=== PATIENT | male | born 1945 | race Two or more races ===

== ENCOUNTER 2016-07-30 14:01 | Outpatient (RCR) | payer MEDICARE, MEDICAID ==
[~2016-07-30] VITALS: Ht 30.5 cm; Wt 0.5 kg
[2016-08-08] MEDS ORDERED: Lidocaine 4% Top Soln 50ml TOPIC ONE (14:30)
[2016-08-08] MEDS ORDERED: Lidocaine/Epinephrine 2% 20 ML VIAL IV ONE (14:30)
== END 2016-08-12 | disposition home or self-care (01) ==
LOC: WCC 14:01
DX: L89.154 Pressure ulcer of sacral region, stage 4 (principal); L89.620 Pressure ulcer of left heel, unstageable; L89.513 Pressure ulcer of right ankle, stage 3; Z86.73 Personal history of transient ischemic attack (TIA), and cerebral infarction without residual deficits; I10 Essential (primary) hypertension; E11.9 Type 2 diabetes mellitus without complications
CPT/HCPCS: 11044; 11047; 20240; 87070; 87181; 87205; G0463

== ENCOUNTER → 2016-07-30 | Outpatient (CLI) | payer MEDICARE, MEDICAID ==
[2016-07-30 16:32] LABS: MEAN CORPUSCULAR HEMOGLOBIN 31.3 PG (27.0-31.0); MEAN CORPUSCULAR HGB CONC 33.3 G/DL (32.0-36.0); MEAN CORPUSCULAR VOLUME 94 FL (80-99); MEAN PLATELET VOLUME 5.2 FL (6.5-10.1); PLATELET COUNT 490 K/UL (150-450); RED BLOOD COUNT 4.17 M/UL (4.70-6.10); RED CELL DISTRIBUTION WIDTH 12.3 % (11.6-14.8); WHITE BLOOD COUNT 19.2 K/UL (4.8-10.8)
[2016-07-30 16:42] LABS: BASOPHILS % (AUTO) 0.8 % (0.0-2.0); EOSINOPHILS % (AUTO) 2.4 % (0.0-3.0); LYMPHOCYTES % (AUTO) 17.7 % (20.0-45.0); MONOCYTES % (AUTO) 5.7 % (1.0-10.0); NEUTROPHILS % (AUTO) 73.4 % (45.0-75.0)
[2016-07-30 17:03] LABS: ALBUMIN/GLOBULIN RATIO 0.6 (1.0-2.7); CALCIUM 9.3 mg/dL (8.6-10.2); CREATININE 1.3 mg/dL (0.7-1.2); GLOMERULAR FILTRATION RATE 54.6 mL/min (>60); POTASSIUM 4.5 mEQ/L (3.4-4.9); TOTAL PROTEIN 8.1 g/dL (6.6-8.7)
== END | disposition home or self-care (01) ==
LOC: LAB 15:57
DX: B99.9 Unspecified infectious disease (principal)
CPT/HCPCS: 36415; 80053; 84134; 85025

== ENCOUNTER → 2016-08-04 | Outpatient (CLI) | payer MEDICARE, MEDICAID ==
[~2016-08-04] VITALS: Ht 172.7 cm; Wt 86.2 kg
[~2016-08-04] MED LIST: Lidocaine 4% Top Soln 50ml TOPIC ONE; Lidocaine/Epinephrine 2% 20 ML VIAL IV ONE
[2016-08-04 15:38] LABS: MEAN CORPUSCULAR HGB CONC 31.8 G/DL (32.0-36.0); MEAN CORPUSCULAR VOLUME 94 FL (80-99); MEAN PLATELET VOLUME 4.8 FL (6.5-10.1); PLATELET COUNT 445 K/UL (150-450); RED BLOOD COUNT 4.28 M/UL (4.70-6.10); RED CELL DISTRIBUTION WIDTH 12.2 % (11.6-14.8); WHITE BLOOD COUNT 20.4 K/UL (4.8-10.8)
[2016-08-04 16:29] LABS: EOSINOPHILS % (MANUAL) 3 % (0-3); LYMPHOCYTES % (MANUAL) 18 % (20-45); NEUTROPHILS % (MANUAL) 72 % (45-75); TOTAL CELLS COUNTED 100
[2016-08-04 16:30] LABS: ANISOCYTOSIS 1+; BAND NEUTROPHILS % (MANUAL) 0 % (0-8); BASOPHILS % (MANUAL) 0 % (0-2); PLATELET ESTIMATE ADEQUATE; PLATELET MORPHOLOGY NORMAL
== END | disposition home or self-care (01) ==
LOC: LAB 15:10
DX: B99.9 Unspecified infectious disease (principal)
CPT/HCPCS: 36415; 85007; 85025

== ENCOUNTER 2016-09-08 13:00 | Outpatient (RCR) | payer MEDICARE, MEDICAID ==
[~2016-09-08] VITALS: Ht 172.7 cm; Wt 86.2 kg
[2016-09-11] MEDS ORDERED: Lidocaine 4% Top Soln 50ml TOPIC ONE (10:45)
== END 2016-09-09 | disposition home or self-care (01) ==
LOC: WCC 13:00
DX: L89.154 Pressure ulcer of sacral region, stage 4 (principal); E11.9 Type 2 diabetes mellitus without complications; L89.612 Pressure ulcer of right heel, stage 2; I10 Essential (primary) hypertension; Z86.73 Personal history of transient ischemic attack (TIA), and cerebral infarction without residual deficits
CPT/HCPCS: 11044; 11047; 97605

== ENCOUNTER 2016-09-15 12:30 | Outpatient (RCR) | payer MEDICARE, MEDICAID | END 2016-10-10 | disposition home or self-care (01) | LOC: WCC 12:30 | DX: L89.154 Pressure ulcer of sacral region, stage 4 (principal); L89.620 Pressure ulcer of left heel, unstageable; L89.513 Pressure ulcer of right ankle, stage 3; R21 Rash and other nonspecific skin eruption; E11.9 Type 2 diabetes mellitus without complications; I10 Essential (primary) hypertension; Z86.73 Personal history of transient ischemic attack (TIA), and cerebral infarction without residual deficits | CPT/HCPCS: 11044; 11047; 97605 ==

== ENCOUNTER 2016-10-15 13:30 | Outpatient (RCR) | payer MEDICARE, MEDICAID ==
[~2016-10-15] VITALS: Ht 172.7 cm; Wt 86.2 kg
[2016-10-17] MEDS ORDERED: Lidocaine HCl 2% Jelly 5ml Tube TOPIC ONE (12:45)
[2016-11-06] MEDS ORDERED: Hydrocortisone 1% Cr 15gm TOPIC ONE (15:30)
== END 2016-11-09 | disposition home or self-care (01) ==
LOC: WCC 13:30
DX: L89.154 Pressure ulcer of sacral region, stage 4 (principal); L89.620 Pressure ulcer of left heel, unstageable; L89.513 Pressure ulcer of right ankle, stage 3; R21 Rash and other nonspecific skin eruption; M86.38 Chronic multifocal osteomyelitis, other site; Z86.73 Personal history of transient ischemic attack (TIA), and cerebral infarction without residual deficits; I10 Essential (primary) hypertension; E11.9 Type 2 diabetes mellitus without complications
CPT/HCPCS: 11043; 11044; 11046; 11047; 20245; 87070; 87181; 87205; 97605

== ENCOUNTER → 2016-10-27 | Outpatient (CLI) | payer MEDICARE, MEDICAID ==
[2016-10-27 14:41] LABS: BASOPHILS % (AUTO) 0.8 % (0.0-2.0); EOSINOPHILS % (AUTO) 2.8 % (0.0-3.0); LYMPHOCYTES % (AUTO) 24.7 % (20.0-45.0); MEAN CORPUSCULAR HEMOGLOBIN 30.4 PG (27.0-31.0); MEAN CORPUSCULAR HGB CONC 32.3 G/DL (32.0-36.0); MEAN CORPUSCULAR VOLUME 94 FL (80-99); MEAN PLATELET VOLUME 5.4 FL (6.5-10.1); MONOCYTES % (AUTO) 4.7 % (1.0-10.0); PLATELET COUNT 383 K/UL (150-450); RED BLOOD COUNT 3.93 M/UL (4.70-6.10); RED CELL DISTRIBUTION WIDTH 13.1 % (11.6-14.8)
[2016-10-27 14:54] LABS: HEMOGLOBIN A1C 6.1 % (< 6.0)
[2016-10-27 15:14] LABS: ANION GAP 16 (5-15); CALCIUM 9.3 mg/dL (8.6-10.2); CARBON DIOXIDE 23 mEQ/L (20-30); CHLORIDE 98 mEQ/L (98-107); CREATININE 0.8 mg/dL (0.7-1.2); GLOMERULAR FILTRATION RATE > 60 mL/min (>60); HEMOLYSIS 1; POTASSIUM 4.6 mEQ/L (3.4-4.9); SODIUM 137 mEQ/L (135-145)
== END | disposition home or self-care (01) ==
LOC: LAB 14:02
DX: E46 Unspecified protein-calorie malnutrition (principal); E11.9 Type 2 diabetes mellitus without complications; B99.9 Unspecified infectious disease
CPT/HCPCS: 36415; 80048; 83036; 84134; 85025; 87070; 87181; 87205

== ENCOUNTER 2016-11-10 12:16 | Outpatient (RCR) | payer MEDICAID, MEDICARE ==
[~2016-11-10] VITALS: Ht 172.7 cm; Wt 86.2 kg
--- NOTE | 2016-11-10 22:18 | Consultation ---
DATE OF CONSULTATION: 11/10/2016 INFECTIOUS DISEASE CONSULTATION REQUESTING PHYSICIAN: Sergio Antoine M.D. 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 coli, Enterococcus faecalis and Staph aureus. Recommendation for antibiotics therapy. HISTORY OF PRESENT ILLNESS: The patient is a 71-year-old male with a past medical history of sacral wound stage IV, left heel pressure ulcer unstageable and right ankle stage III wound, who has had osteomyelitis and was recently admitted to an outside hospital. He had surgical debridement of his sacral wound and he had a culture, which grew E. coli and Enterococcus faecalis. At that time, the patient was treated with Zosyn IV in August for 6 weeks and he was referred to [facility] for further care and management. The patient continued to have an open large sacral decubitus wound with undermining and tunneling. There was no significant improvement in the progress of the sacral wound so he underwent another sacral bone biopsy, which was concern for osteomyelitis. He also had culture from the bone of the sacrum grew E. coli, Staph aureus and Enterococcus faecalis. So, I was consulted by the plastic surgeon for antibiotics treatment for his recurrent osteomyelitis and poor wound healing process. As of note, the patient is a poor historian, cannot provide any history. History was mainly obtained from the caregiver and the medical record. PAST MEDICAL HISTORY: Significant for chronic sacral wound with osteomyelitis, left heel wound and ulcer of the right ankle, skin eruption with rash and chronic osteomyelitis. PAST SURGICAL HISTORY: He had surgical debridement of his sacral wound recently in August. ALLERGIES: He has no known drug allergy. MEDICATIONS: Please refer to the MAR for further details. He was currently on ciprofloxacin for 10 days, which he will finish today. FAMILY HISTORY: Noncontributory. SOCIAL HISTORY: He lives at home with his daughter, who take care of him. No recent drugs, tobacco, or alcohol. PHYSICAL EXAMINATION: GENERAL: The patient is an elderly male, laying on his left side in bed with large sacral wound, seems to be quiet, pleasant, not in acute distress. HEENT: Normocephalic and atraumatic. Pupils are reactive to lights. Pale sclerae. Dry oral mucosa. NECK: Supple. No lymphadenopathy. CARDIOVASCULAR: Regular rate and rhythm. No murmur or gallop. LUNGS: Clear bilaterally. No wheezing or rhonchi. ABDOMEN: Soft, nontender, and nondistended. Positive bowel sounds. No hepatosplenomegaly. EXTREMITIES: No edema or cyanosis. SKIN: He had a sacral pressure wound stage IV measured about 6.3 x 4 cm x 1.7 depth with exposed muscle and bones with undermining mainly at 12 o'clock with bright red granulation at the base of the wound. LABORATORY DATA: Showed BUN of 28 and creatinine of 0.5. Images were none done recently. ASSESSMENT AND RECOMMENDATION: 1. Sacral osteomyelitis due to Escherichia coli, Staphylococcus aureus, and Enterococcus faecalis. We will treat the patient with vancomycin, ceftriaxone and Flagyl for 6 weeks again for his recurrent osteomyelitis. Recommend wound VAC to be placed during this visit to prevent further contamination of the wound with his fecal temo, which causing his recurrent wound infection. I recommend improving his nutritional support and offloading all the time. Plan of care was discussed with the daughter who agreed to proceed. All risks and side effects of antibiotics were explained to the daughter in detail and they agreed to proceed with this plan. We will monitor his laboratories weekly and obtain vancomycin trough at least twice a week to keep therapeutic between 15 to 20. 2. Sacral pressure wound. Continue local wound care as per wound care team. Recommend offloading and wound VAC as needed. Morenita Peña M.D. DR: CARLITA JOB#: [id number] CC:
[2016-11-27] MEDS ORDERED: Lidocaine HCl 2% Jelly 5ml Tube TOPIC ONE (17:00)
[2016-12-10] MEDS ORDERED: Lidocaine HCl 2% Jelly 5ml Tube TOPIC ONE (16:45)
== END 2016-12-10 | disposition home or self-care (01) ==
LOC: WCC 12:16
DX: L89.154 Pressure ulcer of sacral region, stage 4 (principal); L89.620 Pressure ulcer of left heel, unstageable; L89.513 Pressure ulcer of right ankle, stage 3; R21 Rash and other nonspecific skin eruption; M86.38 Chronic multifocal osteomyelitis, other site; Z86.73 Personal history of transient ischemic attack (TIA), and cerebral infarction without residual deficits; E11.9 Type 2 diabetes mellitus without complications; I10 Essential (primary) hypertension
CPT/HCPCS: 11043; 11044; 11046; 11047; 97605; G0463

== ENCOUNTER → 2016-11-10 | Outpatient (CLI) | payer MEDICAID, MEDICARE ==
[~2016-11-10] VITALS: Ht 33 cm; Wt 0.5 kg
[~2016-11-10] MED LIST changes: +Heparin 2000 units/Ns 1000ml INJ ONE; +Lidocaine 1% Plain 30 ml INJ ONE; -Lidocaine 4% Top Soln 50ml TOPIC ONE; -Lidocaine/Epinephrine 2% 20 ML VIAL IV ONE; +Sodium Bicarbonate 8.4% 50ml Inj IV ONE
--- NOTE | 2016-11-10 16:35 | Diagnostic Imaging Report ---
Indications: Needs long-term IV access Technique: Ultrasound confirms patent compressible right basilic vein. Total sterile technique, including sterile probe cover and sterile gel, hat, mask,, sterile gown, large sterile drape, and preparation with 2% chlorhexidine utilized. Local anesthesia with 1% lidocaine. Under real-time ultrasound guidance, puncture basilic vein using 21-gauge needle, documented and archived, passage 0.018 guidewire under direct fluoroscopy, which was used to determine appropriate catheter length, exchange for 5 [place]i peel-away sheath. 5 [place] Bard dual-lumen power PICC cut to 36 cm. It was inserted through the peel-away sheath. Peel-away sheath and guidewire removed. Catheter fixed to the skin. Both catheter ports aspirated and flushed. Patient tolerated procedure well, without immediate complication. Digital radiograph documents satisfactory catheter tip position, at the cavoatrial junction. Total fluoroscopy time 0.3 minutes. Total dose area product 4.9 dGycm2 Impression: Successful placement of right arm PICC under sonographic and fluoroscopic guidance, as described above.
== END | disposition home or self-care (01) ==
LOC: RAD 14:16
DX: M86.9 Osteomyelitis, unspecified (principal); Z79.899 Other long term (current) drug therapy
CPT/HCPCS: 36569; 76937; J1644; J2001; J3490

== ENCOUNTER 2016-11-24 12:02 | Outpatient (CLI) | payer MEDICARE ==
[2016-11-24 12:32] LABS: BASOPHILS % (AUTO) 0.7 % (0.0-2.0); EOSINOPHILS % (AUTO) 4.6 % (0.0-3.0); LYMPHOCYTES % (AUTO) 29.5 % (20.0-45.0); MEAN CORPUSCULAR HGB CONC 33.5 G/DL (32.0-36.0); MEAN CORPUSCULAR VOLUME 92 FL (80-99); MEAN PLATELET VOLUME 6.3 FL (6.5-10.1); MONOCYTES % (AUTO) 5.3 % (1.0-10.0); NEUTROPHILS % (AUTO) 59.9 % (45.0-75.0); PLATELET COUNT 298 K/UL (150-450); RED BLOOD COUNT 4.07 M/UL (4.70-6.10); RED CELL DISTRIBUTION WIDTH 14.9 % (11.6-14.8); WHITE BLOOD COUNT 13.3 K/UL (4.8-10.8)
[2016-11-24 12:48] LABS: ANION GAP 14 (5-15); CALCIUM 8.8 mg/dL (8.6-10.2); CARBON DIOXIDE 25 mEQ/L (20-30); CHLORIDE 97 mEQ/L (98-107); CREATININE 0.6 mg/dL (0.7-1.2); GLOMERULAR FILTRATION RATE > 60 mL/min (>60); HEMOLYSIS 22; POTASSIUM 4.5 mEQ/L (3.4-4.9); SODIUM 136 mEQ/L (135-145)
== END 2016-11-25 13:32 | disposition home or self-care (01) ==
LOC: LAB 12:02
DX: E46 Unspecified protein-calorie malnutrition (principal); B99.9 Unspecified infectious disease
CPT/HCPCS: 36415; 80048; 80202; 84134; 85025

== ENCOUNTER 2016-12-03 12:12 | Outpatient (CLI) | payer MEDICARE | END 2016-12-03 14:12 | disposition home or self-care (01) | LOC: RAD 12:12 | DX: B99.9 Unspecified infectious disease (principal) ==

== ENCOUNTER 2016-12-15 11:00 | Outpatient (RCR) | payer MEDICARE ==
[~2016-12-15] VITALS: Ht 172.7 cm; Wt 86.2 kg
[2016-12-19] MEDS ORDERED: Lidocaine HCl 2% Jelly 5ml Tube TOPIC ONE (14:30)
--- NOTE | 2016-12-22 19:03 | Infectious Diseases Prog Note ---
Assessment/Plan Problems: (1) Sacral osteomyelitis Assessment & Plan: due to staph aureus, enterobacter fecalis and E coli, improving on vancomycin and ceftriaxon , will extend his antibiotics course two more weeks since he has interruption in his antibiotics due to lack of labs , since his PICC line was not withdrawing blood (2) Wound of sacral region Assessment & Plan: with underlying osteomyelitis , continue antibiotics therapy and local wound care as per wound care team, continue off loading Subjective Constitutional: Reports: no symptoms HEENT: Reports: no symptoms Respiratory: Reports: no symptoms Breasts: Reports: no symptoms Cardiovascular: Reports: no symptoms Gastrointestinal/Abdominal: Reports: no symptoms Genitourinary: Reports: no symptoms Neurologic: Reports: no symptoms Psychiatric: Reports: no symptoms Skin: Reports: ulcer - in the sacral area with good granulation tissue Allergies: Coded Allergies: NO KNOWN DRUG ALLERGIES (Verified Allergy, Unknown, 08/08/16) Objective General Appearance: WD/WN, no acute distress HEENT: normocephalic, atraumatic, anicteric, mucous membranes moist Respiratory/Chest: chest wall non-tender, lungs clear, normal breath sounds, no respiratory distress, no accessory muscle use Cardiovascular: normal peripheral pulses, normal rate, regular rhythm, no gallop/murmur, no JVD Abdomen: normal bowel sounds, soft, non tender, no organomegaly, non distended , no mass, no scars Extremities: no cyanosis, no clubbing Skin: no rash, no lesions, ulcers - sacral wound with good granulation tissue and undermining Morenita Peña M.D. Dec 22, 2016 19:03
== END 2017-01-09 | disposition home or self-care (01) ==
LOC: WCC 11:00
DX: L89.154 Pressure ulcer of sacral region, stage 4 (principal); M86.38 Chronic multifocal osteomyelitis, other site; Z86.73 Personal history of transient ischemic attack (TIA), and cerebral infarction without residual deficits; E11.9 Type 2 diabetes mellitus without complications; I10 Essential (primary) hypertension
CPT/HCPCS: 11043; 11046; 97605

== ENCOUNTER 2016-12-29 11:51 | Outpatient (CLI) | payer MEDICARE ==
[2016-12-29 12:24] LABS: BASOPHILS % (AUTO) 1.1 % (0.0-2.0); EOSINOPHILS % (AUTO) 3.5 % (0.0-3.0); MEAN CORPUSCULAR HEMOGLOBIN 31.7 PG (27.0-31.0); MEAN CORPUSCULAR HGB CONC 32.8 G/DL (32.0-36.0); MEAN CORPUSCULAR VOLUME 97 FL (80-99); MEAN PLATELET VOLUME 5.2 FL (6.5-10.1); NEUTROPHILS % (AUTO) 62.5 % (45.0-75.0); PLATELET COUNT 318 K/UL (150-450); RED BLOOD COUNT 3.86 M/UL (4.70-6.10); RED CELL DISTRIBUTION WIDTH 14.5 % (11.6-14.8); WHITE BLOOD COUNT 15.7 K/UL (4.8-10.8)
[2016-12-29 12:48] LABS: ALANINE AMINOTRANSFERASE 131 U/L (3-41); ALBUMIN/GLOBULIN RATIO 0.7 (1.0-2.7); ANION GAP 20 (5-15); ASPARTATE AMINO TRANSFERASE 81 U/L (5-40); CALCIUM 9.2 mg/dL (8.6-10.2); CARBON DIOXIDE 20 mEQ/L (20-30); CHLORIDE 114 mEQ/L (98-107); CREATININE 1.1 mg/dL (0.7-1.2); GLOMERULAR FILTRATION RATE > 60 mL/min (>60); HEMOLYSIS 0; POTASSIUM 4.3 mEQ/L (3.4-4.9); SODIUM 154 mEQ/L (135-145); TOTAL PROTEIN 7.9 g/dL (6.6-8.7)
== END 2016-12-29 13:51 | disposition home or self-care (01) ==
LOC: LAB 11:51
DX: R50.9 Fever, unspecified (principal)
CPT/HCPCS: 36415; 80053; 85025

== ENCOUNTER 2017-01-19 11:00 | Outpatient (RCR) | payer MEDICARE ==
[~2017-01-19] VITALS: Ht 172.7 cm; Wt 86.2 kg
[2017-01-21] MEDS ORDERED: Lidocaine HCl 2% Jelly 5ml Tube TOPIC ONE (11:00)
== END 2017-02-09 | disposition home or self-care (01) ==
LOC: WCC 11:00
DX: L89.154 Pressure ulcer of sacral region, stage 4 (principal); L89.620 Pressure ulcer of left heel, unstageable; M86.38 Chronic multifocal osteomyelitis, other site; Z86.73 Personal history of transient ischemic attack (TIA), and cerebral infarction without residual deficits; I10 Essential (primary) hypertension; E11.9 Type 2 diabetes mellitus without complications
CPT/HCPCS: 11043; 11046; 97605; G0463

== ENCOUNTER 2017-02-23 11:08 | Outpatient (RCR) | payer MEDICARE ==
[~2017-02-23] VITALS: Ht 172.7 cm; Wt 86.2 kg
== END 2017-03-12 | disposition home or self-care (01) ==
LOC: WCC 11:08
DX: L89.154 Pressure ulcer of sacral region, stage 4 (principal); L89.620 Pressure ulcer of left heel, unstageable; M86.38 Chronic multifocal osteomyelitis, other site; E11.9 Type 2 diabetes mellitus without complications; I10 Essential (primary) hypertension; Z86.73 Personal history of transient ischemic attack (TIA), and cerebral infarction without residual deficits
CPT/HCPCS: 11043; 11046; 97605

== ENCOUNTER 2017-03-23 11:00 | Outpatient (RCR) | payer MEDICARE | END 2017-04-11 | disposition home or self-care (01) | LOC: WCC 11:00 | DX: L89.154 Pressure ulcer of sacral region, stage 4 (principal); L89.620 Pressure ulcer of left heel, unstageable; M86.38 Chronic multifocal osteomyelitis, other site; L89.212 Pressure ulcer of right hip, stage 2; I10 Essential (primary) hypertension; E11.9 Type 2 diabetes mellitus without complications; Z86.73 Personal history of transient ischemic attack (TIA), and cerebral infarction without residual deficits | CPT/HCPCS: 11043; 11046; 97605 ==

== ENCOUNTER 2017-03-23 11:56 | Outpatient (CLI) | payer MEDICARE | END 2017-03-23 13:56 | disposition home or self-care (01) | LOC: LAB 11:56 | DX: E46 Unspecified protein-calorie malnutrition (principal) | CPT/HCPCS: 84134 ==

== ENCOUNTER 2017-04-13 11:00 | Outpatient (RCR) | payer MEDICARE ==
[~2017-04-13] VITALS: Ht 172.7 cm; Wt 86.2 kg
== END 2017-05-12 | disposition home or self-care (01) ==
LOC: WCC 11:00
DX: L89.154 Pressure ulcer of sacral region, stage 4 (principal); L89.620 Pressure ulcer of left heel, unstageable; M86.38 Chronic multifocal osteomyelitis, other site; L89.212 Pressure ulcer of right hip, stage 2; I10 Essential (primary) hypertension; E11.9 Type 2 diabetes mellitus without complications; Z86.73 Personal history of transient ischemic attack (TIA), and cerebral infarction without residual deficits
CPT/HCPCS: 11043; 11046; 97605

== ENCOUNTER 2017-05-18 11:00 | Outpatient (RCR) | payer MEDICARE | END 2017-06-11 | disposition home or self-care (01) | LOC: WCC 11:00 | DX: L89.154 Pressure ulcer of sacral region, stage 4 (principal); L89.620 Pressure ulcer of left heel, unstageable; M86.38 Chronic multifocal osteomyelitis, other site; L89.212 Pressure ulcer of right hip, stage 2; Z86.73 Personal history of transient ischemic attack (TIA), and cerebral infarction without residual deficits; E11.9 Type 2 diabetes mellitus without complications; I10 Essential (primary) hypertension | CPT/HCPCS: 11043; 11046; 97605 ==

== ENCOUNTER 2017-06-15 10:30 | Outpatient (RCR) | payer MEDICARE | END 2017-07-12 | disposition home or self-care (01) | LOC: WCC 10:30 | DX: L89.154 Pressure ulcer of sacral region, stage 4 (principal); L89.323 Pressure ulcer of left buttock, stage 3; L89.620 Pressure ulcer of left heel, unstageable; M86.38 Chronic multifocal osteomyelitis, other site; L89.212 Pressure ulcer of right hip, stage 2; E11.9 Type 2 diabetes mellitus without complications; I10 Essential (primary) hypertension; Z86.73 Personal history of transient ischemic attack (TIA), and cerebral infarction without residual deficits | CPT/HCPCS: 11043; 11046 ==

== ENCOUNTER 2017-07-20 10:30 | Outpatient (RCR) | payer MEDICARE, MEDICAID ==
[~2017-07-20] VITALS: Ht 172.7 cm; Wt 86.2 kg
== END 2017-08-12 | disposition home or self-care (01) ==
LOC: WCC 10:30
DX: L89.154 Pressure ulcer of sacral region, stage 4 (principal); L89.620 Pressure ulcer of left heel, unstageable; M86.38 Chronic multifocal osteomyelitis, other site; L89.212 Pressure ulcer of right hip, stage 2; L89.323 Pressure ulcer of left buttock, stage 3; I10 Essential (primary) hypertension; E11.9 Type 2 diabetes mellitus without complications; Z86.73 Personal history of transient ischemic attack (TIA), and cerebral infarction without residual deficits
CPT/HCPCS: 11042; 11043; C5271; Q4124

== ENCOUNTER 2017-08-17 10:43 | Outpatient (RCR) | payer MEDICARE, OTHER | END 2017-09-09 | disposition home or self-care (01) | LOC: WCC 10:43 | DX: L89.154 Pressure ulcer of sacral region, stage 4 (principal); M86.38 Chronic multifocal osteomyelitis, other site; L89.322 Pressure ulcer of left buttock, stage 2; I10 Essential (primary) hypertension; E11.9 Type 2 diabetes mellitus without complications; Z86.73 Personal history of transient ischemic attack (TIA), and cerebral infarction without residual deficits | CPT/HCPCS: 11043; C5271; Q4124 ==

== ENCOUNTER 2017-09-14 10:42 | Outpatient (RCR) | payer MEDICARE, OTHER ==
[~2017-09-14] VITALS: Ht 172.7 cm; Wt 86.2 kg
== END 2017-10-10 | disposition home or self-care (01) ==
LOC: WCC 10:42
DX: L89.154 Pressure ulcer of sacral region, stage 4 (principal); L89.320 Pressure ulcer of left buttock, unstageable; M86.38 Chronic multifocal osteomyelitis, other site; Z86.73 Personal history of transient ischemic attack (TIA), and cerebral infarction without residual deficits; I10 Essential (primary) hypertension
CPT/HCPCS: 11042; 15271; Q4133

== ENCOUNTER 2017-10-12 08:41 | Outpatient (RCR) | payer MEDICARE, OTHER ==
[2017-11-02] MEDS ORDERED: NORMODYNE100 MG ORAL (13:04)
[2017-11-02] MEDS ORDERED: DILANTIN100 MG ORAL (13:04)
[2017-11-02] MEDS ORDERED: NORVASC5 MG ORAL (13:04)
[2017-11-02] MEDS ORDERED: TYLENOL EXTRA500 MG ORAL (13:04)
[2017-11-02] MEDS ORDERED: BENAZEPRIL HCL20 MG ORAL (13:04)
[2017-11-02] MEDS ORDERED: TRICOR145 MG ORAL (13:04)
[2017-11-02] MEDS ORDERED: GLYBURIDE2.5 MG PO (13:04)
[2017-11-06] MEDS ORDERED: CEPHALEXIN500 MG ORAL (12:53)
== END 2017-11-09 | disposition home or self-care (01) ==
LOC: WCC 08:41
DX: L89.154 Pressure ulcer of sacral region, stage 4 (principal); L89.320 Pressure ulcer of left buttock, unstageable; M86.38 Chronic multifocal osteomyelitis, other site; Z86.73 Personal history of transient ischemic attack (TIA), and cerebral infarction without residual deficits; E11.9 Type 2 diabetes mellitus without complications; I10 Essential (primary) hypertension; A41.9 Sepsis, unspecified organism
CPT/HCPCS: 11042; 11043

== ENCOUNTER 2017-11-02 11:27 | Inpatient (IN) | payer MEDICARE, MEDICAID ==
[2017-11-02] VITALS (22 sets, daily range): BP systolic 78–116; BP diastolic 38–61
[~2017-11-02] VITALS: Ht 170.2 cm; Wt 86.3 kg
[2017-11-02] MEDS ORDERED: Ampicillin/Sulbactam Sod 3 GM in NS 110 ML IV SCH (12:15)
[2017-11-02] MEDS ORDERED: Vancomycin 1 GM in NS 275 ML IV ONE (12:15)
[2017-11-02 12:32] LABS: BASOPHILS % (AUTO) 0.6 % (0.0-2.0); EOSINOPHILS % (AUTO) 0.1 % (0.0-3.0); HEMOGLOBIN 11.7 G/DL (14.2-18.0); LYMPHOCYTES % (AUTO) 20.1 % (20.0-45.0); MEAN CORPUSCULAR VOLUME 93 FL (80-99); MONOCYTES % (AUTO) 7.2 % (1.0-10.0); PLATELET COUNT 144 K/UL (150-450); RED BLOOD COUNT 3.54 M/UL (4.70-6.10); RED CELL DISTRIBUTION WIDTH 12.6 % (11.6-14.8); WHITE BLOOD COUNT 16.6 K/UL (4.8-10.8)
[2017-11-02] MEDS ORDERED: Acetaminophen 650 MG SUPP RECTAL ONE ×2 (12:34→12:45)
[2017-11-02 12:37] LABS: INR 1.1 (0.9-1.1)
[2017-11-02 12:41] LABS: ANION GAP 7 mmol/L (5-15); BLOOD UREA NITROGEN 44 mg/dL (7-18); CALCIUM 8.5 MG/DL (8.5-10.1); CARBON DIOXIDE 26 MMOL/L (21-32); CHLORIDE 99 MMOL/L (98-107); CREATININE 1.6 MG/DL (0.55-1.30); POTASSIUM 4.8 MMOL/L (3.5-5.1); SODIUM 131 MMOL/L (136-145)
[2017-11-02 12:43] LABS: BILIRUBIN, URINE NEGATIVE (NEGATIVE); GLUCOSE, URINE (UA) NEGATIVE (NEGATIVE); KETONES,URINE NEGATIVE (NEGATIVE); LEUKOCYTE ESTERASE ,URINE 3+ (NEGATIVE); NITRITE,URINE NEGATIVE (NEGATIVE); PH,URINE 5 (4.5-8.0); PROTEIN,URINE NEGATIVE (NEGATIVE); UROBILINOGEN,URINE NORMAL MG/DL (0.0-1.0)
[2017-11-02 12:53] LABS: APPEARANCE,URINE SLIGHTLY CLOUDY; COLOR,URINE YELLOW
[2017-11-02 12:54] LABS: ALANINE AMINOTRANSFERASE 32 U/L (12-78); ALBUMIN 2.5 G/DL (3.4-5.0); ALBUMIN/GLOBULIN RATIO 0.5 (1.0-2.7); ALKALINE PHOSPHATASE 57 U/L (46-116); ASPARTATE AMINO TRANSFERASE 47 U/L (15-37); BILIRUBIN,TOTAL 0.4 MG/DL (0.2-1.0); CKMB < 0.5 NG/ML (0.0-3.6); CREATINE KINASE 72 U/L (26-308)
[2017-11-02] MEDS ORDERED: TYLENOL EXTRA500 MG ORAL (13:04)
[2017-11-02] MEDS ORDERED: NORVASC5 MG ORAL (13:04)
[2017-11-02] MEDS ORDERED: GLYBURIDE2.5 MG PO (13:04)
[2017-11-02] MEDS ORDERED: NORMODYNE100 MG ORAL (13:04)
[2017-11-02] MEDS ORDERED: DILANTIN100 MG ORAL (13:04)
[2017-11-02] MEDS ORDERED: BENAZEPRIL HCL20 MG ORAL (13:04)
[2017-11-02] MEDS ORDERED: TRICOR145 MG ORAL (13:04)
--- NOTE | 2017-11-02 13:15 | Emergency Room Report ---
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 Allergies: Coded Allergies: NO KNOWN DRUG ALLERGIES (Verified Allergy, Unknown, 08/08/16) Patient History Limited by: medical condition Past Medical History: see triage record Reviewed Nursing Documentation: PMH: Agreed; PSxH: Agreed Nursing Documentation-PMH Past Medical History: No History, Except For Hx Hypertension: Yes Hx Diabetes: Yes Hx Cerebrovascular Accident: Yes Review of Systems All Other Systems: limited Physical Exam Vital Signs Date Time Temp Pulse Resp B/P (MAP) Pulse Ox O2 Delivery O2 Flow Rate FiO2 11/02/17 11:36 99.0 74 28 90/46 98 Room Air 99.0 Sp02 EP Interpretation: reviewed, normal, abnormal - hypotension General Appearance: no apparent distress, mild distress, Chronically Ill, Postictal Head: normocephalic - R crani deformity Eyes: bilateral eye normal inspection, bilateral eye PERRL - narrow b/l, bilateral eye EOMI ENT: normal ENT inspection, normal pharynx, dry mucus membranes Neck: normal inspection, full range of motion - passively, supple, supple/symm/ no masses Respiratory: chest non-tender, lungs clear, normal breath sounds, chest symmetrical, palpation of chest normal Cardiovascular #1: normal peripheral pulses, regular rate, rhythm Cardiovascular #2: 2+ radial (R), 2+ radial (L) Gastrointestinal: normal inspection, non tender, soft, no mass, no guarding, no rebound Rectal: deferred Genitourinary: normal inspection, no CVA tenderness Musculoskeletal: back normal, gait/station normal, normal range of motion, non- tender, no calf tenderness Neurologic: alert - arousable, nonverbal currently, moves upper extremities slightly, decreased leg movement Psychiatric: depressed affect Skin: normal color, no rash, warm/dry, normal turgor Lymphatic: no adenopathy Procedures Critical Care Time Critical Care Time 45 minutes of critical care time due to need f multiple re-evaluations given the patient's critical illness and hypotension requiring aggressive fluid resuscitation and pressors, excluding all procedures Central Line Central Line : Consent: Emergent Central Line Lumen: triple Maximal Sterile Barrier Tech: yes cap, yes mask, yes sterile gown, yes sterile gloves, yes large sterile sheet, yes hand hygiene, yes chlorhexidine prep No Max Barrier Tech Because: emergency insertion Central Line Postion: femoral (R) Anesthesia: Lidocaine cc's of anesthesia: 3 Complications: none Central Line Post Position: sutured, good blood return Attempts: One Patient Tolerated: Well Complications: None Medical Decision Making Diagnostic Impression: Primary Impression: Sepsis ER Course Patient found to have urosepsis, was treated with 30 mL/kg IV fluid bolus upon arrival, lactic acid, blood cultures, broad-spectrum antibiotics A repeat focus S exam was formed and patient was still hypotensive Patient received more fluids and then Levophed MRI brain is pending as our CT scanner is down Patient admitted to Dr. Torres to the ICU pending brain imaging for diagnosis of uti, sepsis and septic shock EKG Diagnostic Results EKG Time: 11:35 EP Interpretation: no st-t changes or twi Rate: normal Rhythm: NSR ST Segments: no acute changes Rhythm Strip Diag. Results Rhythm Strip Time: 13:13 EP Interpretation: yes Rate: 75 Rhythm: NSR, no PVC's, no ectopy Chest X-Ray Diagnostic Results Chest X-Ray Diagnostic Results : Chest X-Ray Ordered: Yes # of Views/Limited/Complete: 1 View Indication: Other EP Interpretation: Yes Interpretation: no consolidation Impression: No acute disease Electronically Signed by: Oli Chew MD Last Vital Signs Date Time Temp Pulse Resp B/P (MAP) Pulse Ox O2 Delivery O2 Flow Rate FiO2 11/02/17 12:35 101.0 11/02/17 11:36 74 28 90/46 98 Room Air Status: improved Disposition: ADMITTED INPATIENT Admit Decision Time: 14:24 Condition: Critical Signed Out To: OLI Mahoney M.D Nov 02, 2017 13:15
[2017-11-02] MEDS ORDERED: Morphine Sulfate 4mg/ml Inj IVP PRN (13:30)
[2017-11-02] MEDS ORDERED: Miralax 17gm pkt ORAL PRN (13:30)
[2017-11-02] MEDS ORDERED: Albuterol/Ipratropium 3ml neb HHN PRN (13:30)
[2017-11-02] MEDS ORDERED: Lidocaine 1% Plain 30 ml INJ ONE (13:49)
--- NOTE | 2017-11-02 13:53 | Diagnostic Imaging Report ---
Indication: Pain Technique: One view of the chest Comparison: none Findings: No acute infiltrates, effusions, or congestion. Tortuous calcified aorta. Normal heart size. Upper mediastinum unremarkable. Impression: No acute process.
[2017-11-02] MEDS ORDERED: Amikacin Rx to dose MISC PRN (15:00)
--- NOTE | 2017-11-02 15:43 | Diagnostic Imaging Report ---
Indication: Patient needs MRI, has history of craniotomy; screening for aneurysm clip Technique: 2 views of the skull Comparison: none Findings: Craniotomy anchors and a craniectomy defect are seen in the right frontotemporal region. No aneurysm clip demonstrated. No acute fractures. The sinuses are grossly clear. Impression: Evidence of prior craniotomy/craniectomy. Negative for evidence of aneurysm clip
[2017-11-02] MEDS ORDERED: Ertapenem 1 GM in NS 55 ML IV SCH (16:00)
[2017-11-02] MEDS: Amikacin 350 MG in NS 110 ML IV SCH (17:00)
--- NOTE | 2017-11-02 18:53 | History and Physical ---
History of Present Illness General Date patient seen: Nov 02, 2017 Reason for Hospitalization: Fever Present Illness HPI 72 year old with hx of CVA, CAD, HTN, was at [facility], when he became hypotensive and brought to ER. He had a fever of 101 and was hypotensive. He was diagnosed to have septic shock and was started on IV levophed and abx and transferred to ICU. Pt looks comfortable, doesn't communicate, but seems awake. Allergies: Coded Allergies: NO KNOWN DRUG ALLERGIES (Verified Allergy, Unknown, 08/08/16) Medication History Scheduled Amlodipine Besylate (Norvasc), 5 MG ORAL HS, (Reported) Benazepril Hcl* (Benazepril Hcl*), 20 MG ORAL EVERY 12 HOURS, (Reported) Fenofibrate (Tricor), 145 MG ORAL HS, (Reported) Labetalol HCl (Labetalol HCl), 100 MG ORAL DAILY, (Reported) Phenytoin Sodium Extended* (Dilantin*), 300 MG ORAL BEDTIME, (Reported) Phenytoin Sodium Extended* (Dilantin*), 400 MG ORAL BEDTIME, (Reported) Scheduled PRN Acetaminophen* (Tylenol Extra Strength*), 500 MG ORAL Q6H PRN for Mild Pain/ Temp > 100.5, (Reported) Miscellaneous Medications Glyburide (Glyburide), 2.5 MG PO, (Reported) Patient History Healthcare decision maker Resuscitation status Full Code Advanced Directive on File Past Medical/Surgical History Past Medical/Surgical History: (1) History of CVA (cerebrovascular accident) (2) Diabetes mellitus (3) History of hypertension Review of Systems Constitutional: Reports: fever, malaise All Other Systems: negative except mentioned in HPI Physical Exam General Appearance: cachetic Lines, tubes and drains: peripheral HEENT: normocephalic, atraumatic Neck: non-tender, normal alignment Respiratory/Chest: rhonchi - left, rhonchi - right Breasts: no masses Cardiovascular/Chest: normal peripheral pulses Abdomen: normal bowel sounds, non tender Genitourinary/Rectal: normal genital exam, normal rectal exam Extremities: normal range of motion, non-tender Neurologic: mobile therapist II-XII grossly normal Last 24 Hour Vital Signs Date Time Temp Pulse Resp B/P (MAP) Pulse Ox O2 Delivery O2 Flow Rate FiO2 11/02/17 18:30 61 16 104/51 100 Nasal Cannula 2.0 11/02/17 18:00 98.3 60 16 107/54 100 Nasal Cannula 2.0 98.3 11/02/17 17:30 59 16 103/55 100 Nasal Cannula 2.0 11/02/17 17:00 58 17 103/53 100 Nasal Cannula 2.0 11/02/17 17:00 103/53 11/02/17 16:30 60 16 94/50 100 Nasal Cannula 2.0 11/02/17 16:00 101/49 11/02/17 16:00 62 16 98/54 100 Nasal Cannula 2.0 11/02/17 15:37 98.0 63 24 99/43 100 Room Air 213.8 11/02/17 15:30 63 18 97/48 100 Nasal Cannula 2.0 11/02/17 15:00 98.2 65 13 97/51 100 Room Air 98.2 11/02/17 15:00 97/51 11/02/17 14:39 101/49 11/02/17 14:32 64 16 103/45 100 Room Air 11/02/17 14:31 66 15 84/41 100 Room Air 11/02/17 14:27 84/41 11/02/17 14:22 82/38 11/02/17 13:05 98.0 11/02/17 13:00 73 19 82/38 100 Room Air 11/02/17 12:35 101.0 11/02/17 12:30 73 22 78/38 100 Room Air 11/02/17 11:46 74 28 Room Air 11/02/17 11:36 99.0 74 28 90/46 98 Room Air 99.0 11/02/17 11:30 101.0 75 25 86/44 98 Room Air 101.0 Laboratory Tests Test 11/02/17 12:00 11/02/17 12:30 White Blood Count 16.6 K/UL (4.8-10.8) H Red Blood Count 3.54 M/UL (4.70-6.10) L Hemoglobin 11.7 G/DL (14.2-18.0) L Hematocrit 33.0 % (42.0-52.0) L Mean Corpuscular Volume 93 FL (80-99) Mean Corpuscular Hemoglobin 33.0 PG (27.0-31.0) H Mean Corpuscular Hemoglobin Concent 35.4 G/DL (32.0-36.0) Red Cell Distribution Width 12.6 % (11.6-14.8) Platelet Count 144 K/UL (150-450) L Mean Platelet Volume 6.3 FL (6.5-10.1) L Neutrophils (%) (Auto) 72.0 % (45.0-75.0) Lymphocytes (%) (Auto) 20.1 % (20.0-45.0) Monocytes (%) (Auto) 7.2 % (1.0-10.0) Eosinophils (%) (Auto) 0.1 % (0.0-3.0) Basophils (%) (Auto) 0.6 % (0.0-2.0) Prothrombin Time 11.6 SEC (9.30-11.50) H Prothromb Time International Ratio 1.1 (0.9-1.1) Activated Partial Thromboplast Time 31 SEC (23-33) Sodium Level 131 MMOL/L (136-145) L Potassium Level 4.8 MMOL/L (3.5-5.1) Chloride Level 99 MMOL/L (98-107) Carbon Dioxide Level 26 MMOL/L (21-32) Anion Gap 7 mmol/L (5-15) Blood Urea Nitrogen 44 mg/dL (7-18) H Creatinine 1.6 MG/DL (0.55-1.30) H Estimat Glomerular Filtration Rate mL/min (>60) Glucose Level 173 MG/DL (74-106) H Lactic Acid Level 1.10 mmol/L (0.66-2.22) Calcium Level 8.5 MG/DL (8.5-10.1) Magnesium Level 1.7 MG/DL (1.8-2.4) L Total Bilirubin 0.4 MG/DL (0.2-1.0) Aspartate Amino Transf (AST/SGOT) 47 U/L (15-37) H Alanine Aminotransferase (ALT/SGPT) 32 U/L (12-78) Alkaline Phosphatase 57 U/L (46-116) Total Creatine Kinase 72 U/L (26-308) Creatine Kinase MB < 0.5 NG/ML (0.0-3.6) Creatine Kinase MB Relative Index 0.6 Troponin I 0.000 ng/mL (0.000-0.056) Total Protein 7.4 G/DL (6.4-8.2) Albumin 2.5 G/DL (3.4-5.0) L Globulin 4.9 g/dL Albumin/Globulin Ratio 0.5 (1.0-2.7) L Urine Color Yellow Urine Appearance Slightly cloudy Urine pH 5 (4.5-8.0) Urine Specific [place] 1.015 (1.005-1.035) Urine Protein Negative (NEGATIVE) Urine Glucose (UA) Negative (NEGATIVE) Urine Ketones Negative (NEGATIVE) Urine Occult Blood 2+ (NEGATIVE) H Urine Nitrite Negative (NEGATIVE) Urine Bilirubin Negative (NEGATIVE) Urine Urobilinogen Normal MG/DL (0.0-1.0) Urine Leukocyte Esterase 3+ (NEGATIVE) H Urine RBC 2-4 /HPF (0 - 0) H Urine WBC 10-15 /HPF (0 - 0) H Urine Squamous Epithelial Cells Occasional /LPF Urine Bacteria Few /HPF (NONE) Microbiology Date/Time Source Procedure Growth Status 11/02/17 12:45 Nasal Nares Influenza Types A,B Antigen (ROHITH) - Final Complete Height (Feet): 5 Height (Inches): 7.00 Weight (Pounds): 150 Medications Current Medications Medications (Trade) Dose Ordered Sig/Arley Route PRN Reason Start Time Stop Time Status Last Admin Dose Admin Acetaminophen (Tylenol) 650 mg Q4H PRN ORAL fever 11/02/17 13:30 12/02/17 13:29 Albuterol/ Ipratropium (Albuterol/ Ipratropium) 3 ml EVERY 4 HOURS PRN HHN Shortness of Breath 11/02/17 13:30 11/07/17 13:29 Amikacin Protocol (Amikacin pharmacy to dose) 1 ea DAILY PRN MISC RX TO DOSE 11/02/17 15:00 12/02/17 14:59 Amikacin Sulfate 350 mg/Sodium Chloride 111.4 ml @ 222.8 mls/ hr Q12H IV 11/02/17 17:00 11/09/17 23:59 11/02/17 17:00 Ertapenem 1 gm/ Sodium Chloride 55 ml @ 110 mls/hr Q24H IV 11/02/17 16:00 11/07/17 23:59 11/02/17 16:29 Heparin Sodium (Porcine) (Heparin 5000 units/ml) 5,000 units EVERY 12 HOURS SUBQ 11/02/17 21:00 12/02/17 20:59 Morphine Sulfate (Morphine Sulfate) 2 mg EVERY 4 HOURS PRN IVP Severe Pain (Pain Scale 7-10) 11/02/17 13:30 11/09/17 13:29 Norepinephrine Bitartrate 4 mg/ Dextrose 254 ml @ 0 mls/hr Q24H IV 11/02/17 14:39 12/02/17 14:38 11/02/17 14:39 Ondansetron HCl (Zofran) 4 mg Q6H PRN IVP Nausea & Vomiting 11/02/17 13:30 12/02/17 13:29 Pantoprazole (Protonix) 40 mg DAILY IVP 11/03/17 09:00 12/03/17 08:59 Phenytoin (Dilantin) 400 mg BEDTIME ORAL 11/02/17 21:00 12/02/17 20:59 Polyethylene Glycol (Miralax) 17 gm DAILYPRN PRN ORAL Constipation 11/02/17 13:30 12/02/17 13:29 Sodium Chloride 1,000 ml @ 100 mls/hr Q10H IVLG 11/02/17 14:39 12/02/17 14:38 11/02/17 14:39 Vancomycin HCl (Vanco rx to dose) 1 ea DAILY PRN MISC RX TO DOSE 11/02/17 15:15 12/02/17 15:14 Vancomycin HCl 1 gm/Dextrose 275 ml @ 183.708 mls/hr Q24H IVPB 11/03/17 13:00 11/08/17 23:59 Assessment/Plan Problem List: (1) Septic shock ICD Codes: A41.9 - Sepsis, unspecified organism; R65.21 - Severe sepsis with septic shock SNOMED: 45159857 (2) Hypotension ICD Codes: I95.9 - Hypotension, unspecified SNOMED: 92303697 (3) Diabetes mellitus ICD Codes: E11.9 - Type 2 diabetes mellitus without complications SNOMED: 81885951 (4) History of hypertension ICD Codes: Z86.79 - Personal history of other diseases of the circulatory system SNOMED: 804031869 (5) History of CVA (cerebrovascular accident) ICD Codes: Z86.73 - Personal history of transient ischemic attack (TIA), and cerebral infarction without residual deficits SNOMED: 940963446 (6) ATN (acute tubular necrosis) ICD Codes: N17.0 - Acute kidney failure with tubular necrosis SNOMED: 41568708 Assessment/Plan jorge cultures IV abc iv fluids check echo f/u renal function renal US anemia w/u dvt prophylaxis. Kimberlyn Torres MD Nov 02, 2017 18:53
[2017-11-02] MEDS: Phenytoin 100mg cap ORAL SCH (20:17)
[2017-11-02] MEDS: Heparin 5000 units/ml inj SUBQ SCH (20:24)
[2017-11-02] MEDS ORDERED: Amikacin 0 MG in NS 110 ML IV SCH (23:45)
[2017-11-02] MEDS ORDERED: Vancomycin 1 GM in D5W 275 ML IV SCH (23:45)
[2017-11-03] VITALS (41 sets, daily range): BP systolic 81–119; BP diastolic 34–51
[2017-11-03] MEDS: Amikacin 350 MG in NS 110 ML IV SCH (04:24)
[2017-11-03 04:36] LABS: APPEARANCE,URINE CLEAR; BILIRUBIN, URINE NEGATIVE (NEGATIVE); COLOR,URINE PALE YELLOW; GLUCOSE, URINE (UA) NEGATIVE (NEGATIVE); KETONES,URINE NEGATIVE (NEGATIVE); LEUKOCYTE ESTERASE ,URINE 2+ (NEGATIVE); NITRITE,URINE NEGATIVE (NEGATIVE); PH,URINE 6 (4.5-8.0); PROTEIN,URINE 1+ (NEGATIVE); UROBILINOGEN,URINE NORMAL MG/DL (0.0-1.0)
[2017-11-03 04:46] LABS: BASOPHILS % (AUTO) 0.5 % (0.0-2.0); EOSINOPHILS % (AUTO) 1.8 % (0.0-3.0); HEMATOCRIT 26.2 % (42.0-52.0); HEMOGLOBIN 9.2 G/DL (14.2-18.0); LYMPHOCYTES % (AUTO) 23.1 % (20.0-45.0); MEAN CORPUSCULAR VOLUME 93 FL (80-99); NEUTROPHILS % (AUTO) 66.7 % (45.0-75.0); PLATELET COUNT 116 K/UL (150-450); RED BLOOD COUNT 2.83 M/UL (4.70-6.10); RED CELL DISTRIBUTION WIDTH 12.7 % (11.6-14.8); WHITE BLOOD COUNT 10.3 K/UL (4.8-10.8)
[2017-11-03 06:27] LABS: ALANINE AMINOTRANSFERASE 29 U/L (12-78); ALBUMIN 2.1 G/DL (3.4-5.0); ALBUMIN/GLOBULIN RATIO 0.5 (1.0-2.7); ALKALINE PHOSPHATASE 48 U/L (46-116); ANION GAP 10 mmol/L (5-15); ASPARTATE AMINO TRANSFERASE 29 U/L (15-37); BILIRUBIN,DIRECT < 0.1 MG/DL (0.0-0.3); BILIRUBIN,TOTAL 0.3 MG/DL (0.2-1.0); BLOOD UREA NITROGEN 32 mg/dL (7-18); CALCIUM 7.8 MG/DL (8.5-10.1); CARBON DIOXIDE 21 MMOL/L (21-32); CHLORIDE 109 MMOL/L (98-107); POTASSIUM 3.8 MMOL/L (3.5-5.1); SODIUM 140 MMOL/L (136-145)
--- NOTE | 2017-11-03 09:33 | Pulmonolgy Critical Care Note ---
Critical Care - Asmt/Plan Problems: (1) Septic shock (2) Hypotension (3) ATN (acute tubular necrosis) (4) History of CVA (cerebrovascular accident) (5) History of hypertension (6) Diabetes mellitus Respiratory: monitor respiratory rate, adjust FIO2 Cardiac: stop pressors, continue to monitor HR/BP Renal: F/U I&O, keep IV fluid, check electrolytes Infectious Disease: check cultures, continue antibiotics Gastrointestinal: other - swallow study Hematologic: monitor H/H Neurologic: PRN Ativan Affect: PRN ativan Prophylaxis: Protonix, Heparin Disposition: keep in ICU Time Spent (Minutes): 40 Notes Reviewed: cardio Discussed with: nurses, consultants, case packer and sealer, family member Critical Care - Objective Last 24 Hour Vital Signs Date Time Temp Pulse Resp B/P (MAP) Pulse Ox O2 Delivery O2 Flow Rate FiO2 11/03/17 07:00 71 15 102/36 100 Nasal Cannula 2.0 11/03/17 06:45 63 16 108/48 100 Nasal Cannula 2.0 11/03/17 06:30 63 16 107/43 100 Nasal Cannula 2.0 11/03/17 06:15 64 20 104/42 100 Nasal Cannula 2.0 11/03/17 06:00 64 15 111/46 100 Nasal Cannula 2.0 11/03/17 05:45 62 15 102/41 100 Nasal Cannula 2.0 11/03/17 05:30 63 25 101/42 100 Nasal Cannula 2.0 11/03/17 05:15 62 22 99/40 100 Nasal Cannula 2.0 11/03/17 05:00 61 17 99/40 100 Nasal Cannula 2.0 11/03/17 04:45 62 20 99/45 100 Nasal Cannula 2.0 11/03/17 04:30 61 18 96/45 100 Nasal Cannula 2.0 11/03/17 04:15 65 19 103/48 100 Nasal Cannula 2.0 11/03/17 04:00 99.1 68 20 94/46 100 Nasal Cannula 2.0 99.1 11/03/17 04:00 63 11/03/17 03:45 62 20 90/38 100 Nasal Cannula 2.0 11/03/17 03:30 63 20 93/42 100 Nasal Cannula 2.0 11/03/17 03:15 64 18 93/42 100 Nasal Cannula 2.0 11/03/17 03:00 64 22 95/39 100 Nasal Cannula 2.0 11/03/17 02:45 65 22 93/41 100 Nasal Cannula 2.0 11/03/17 02:30 65 20 93/34 100 Nasal Cannula 2.0 11/03/17 02:15 65 20 100/40 100 Nasal Cannula 2.0 11/03/17 02:00 65 20 100/41 100 Nasal Cannula 2.0 11/03/17 01:45 65 21 103/39 100 Nasal Cannula 2.0 11/03/17 01:30 63 20 102/41 100 Nasal Cannula 2.0 11/03/17 01:00 62 20 103/43 100 Nasal Cannula 2.0 11/03/17 00:15 88/45 11/03/17 00:00 98.1 100 12 88/45 100 Nasal Cannula 2.0 98.1 11/03/17 00:00 63 11/02/17 23:45 63 17 88/44 100 Nasal Cannula 2.0 11/02/17 23:15 63 17 92/43 100 Nasal Cannula 2.0 11/02/17 23:00 63 21 89/41 100 Nasal Cannula 2.0 11/02/17 22:45 64 17 102/50 100 Nasal Cannula 2.0 11/02/17 22:00 63 18 110/49 100 Nasal Cannula 2.0 11/02/17 21:00 64 18 115/50 100 Nasal Cannula 2.0 11/02/17 20:00 64 11/02/17 20:00 65 17 116/61 100 Nasal Cannula 2.0 11/02/17 19:30 98.3 60 12 112/55 100 Nasal Cannula 2.0 98.3 11/02/17 19:00 60 17 101/50 100 Nasal Cannula 2.0 11/02/17 18:30 61 16 104/51 100 Nasal Cannula 2.0 11/02/17 18:00 98.3 60 16 107/54 100 Nasal Cannula 2.0 98.3 11/02/17 17:30 59 16 103/55 100 Nasal Cannula 2.0 11/02/17 17:00 58 17 103/53 100 Nasal Cannula 2.0 11/02/17 17:00 103/53 11/02/17 16:30 60 16 94/50 100 Nasal Cannula 2.0 11/02/17 16:00 101/49 11/02/17 16:00 62 16 98/54 100 Nasal Cannula 2.0 11/02/17 15:37 98.0 63 24 99/43 100 Room Air 213.8 11/02/17 15:30 63 18 97/48 100 Nasal Cannula 2.0 11/02/17 15:00 98.2 65 13 97/51 100 Room Air 98.2 11/02/17 15:00 97/51 11/02/17 14:39 101/49 11/02/17 14:32 64 16 103/45 100 Room Air 11/02/17 14:31 66 15 84/41 100 Room Air 11/02/17 14:27 84/41 11/02/17 14:22 82/38 11/02/17 13:05 98.0 11/02/17 13:00 73 19 82/38 100 Room Air 11/02/17 12:35 101.0 11/02/17 12:30 73 22 78/38 100 Room Air 11/02/17 11:46 74 28 Room Air 11/02/17 11:36 99.0 74 28 90/46 98 Room Air 99.0 11/02/17 11:30 101.0 75 25 86/44 98 Room Air 101.0 Status: awake Condition: critical HEENT: atraumatic, normocephalic Neck: full ROM Lungs: rhonchi Heart: HR/BP unstable, regular Abdomen: soft, non-tender, feeding tube Extremities: edema Decubiti: location Micro: Microbiology Date/Time Source Procedure Growth Status 11/02/17 12:45 Nasal Nares Influenza Types A,B Antigen (ROHITH) - Final Complete 11/02/17 12:30 Urine,Clean Catch Urine Culture - Preliminary Gram Negative Bacillus 1 Resulted Critical Care - Subjective ROS Limited/Unobtainable: Yes ICU Day: 2 Interval Events: off levophed drip for one hour, BP is still borderline Condition: critical Fluids: NS 100 cc/hour Drips: Levophed drip I&O: Intake and Output 11/02/17 11/03/17 19:00 07:00 Intake Total 2962.5 ml 1201.67 ml Output Total 180 ml 1250 ml Balance 2782.5 ml -48.33 ml Intake Oral 0 ml 0 ml IV Total 2962.5 ml 1141.67 ml Other 60 ml Output Urine Total 180 ml 1250 ml # Voids 1 CXR: ANA Labs: Laboratory Tests Test 11/02/17 12:00 11/02/17 12:30 11/03/17 03:30 11/03/17 03:40 White Blood Count 16.6 K/UL (4.8-10.8) H 10.3 K/UL (4.8-10.8) Red Blood Count 3.54 M/UL (4.70-6.10) L 2.83 M/UL (4.70-6.10) L Hemoglobin 11.7 G/DL (14.2-18.0) L 9.2 G/DL (14.2-18.0) L Hematocrit 33.0 % (42.0-52.0) L 26.2 % (42.0-52.0) L Mean Corpuscular Volume 93 FL (80-99) 93 FL (80-99) Mean Corpuscular Hemoglobin 33.0 PG (27.0-31.0) H 32.6 PG (27.0-31.0) H Mean Corpuscular Hemoglobin Concent 35.4 G/DL (32.0-36.0) 35.1 G/DL (32.0-36.0) Red Cell Distribution Width 12.6 % (11.6-14.8) 12.7 % (11.6-14.8) Platelet Count 144 K/UL (150-450) L 116 K/UL (150-450) L Mean Platelet Volume 6.3 FL (6.5-10.1) L 6.8 FL (6.5-10.1) Neutrophils (%) (Auto) 72.0 % (45.0-75.0) 66.7 % (45.0-75.0) Lymphocytes (%) (Auto) 20.1 % (20.0-45.0) 23.1 % (20.0-45.0) Monocytes (%) (Auto) 7.2 % (1.0-10.0) 8.0 % (1.0-10.0) Eosinophils (%) (Auto) 0.1 % (0.0-3.0) 1.8 % (0.0-3.0) Basophils (%) (Auto) 0.6 % (0.0-2.0) 0.5 % (0.0-2.0) Prothrombin Time 11.6 SEC (9.30-11.50) H Prothromb Time International Ratio 1.1 (0.9-1.1) Activated Partial Thromboplast Time 31 SEC (23-33) Sodium Level 131 MMOL/L (136-145) L 140 MMOL/L (136-145) Potassium Level 4.8 MMOL/L (3.5-5.1) 3.8 MMOL/L (3.5-5.1) Chloride Level 99 MMOL/L (98-107) 109 MMOL/L (98-107) H Carbon Dioxide Level 26 MMOL/L (21-32) 21 MMOL/L (21-32) Anion Gap 7 mmol/L (5-15) 10 mmol/L (5-15) Blood Urea Nitrogen 44 mg/dL (7-18) H 32 mg/dL (7-18) H Creatinine 1.6 MG/DL (0.55-1.30) H 1.0 MG/DL (0.55-1.30) Estimat Glomerular Filtration Rate mL/min (>60) mL/min (>60) Glucose Level 173 MG/DL (74-106) H 88 MG/DL (74-106) Lactic Acid Level 1.10 mmol/L (0.66-2.22) Calcium Level 8.5 MG/DL (8.5-10.1) 7.8 MG/DL (8.5-10.1) L Magnesium Level 1.7 MG/DL (1.8-2.4) L 1.6 MG/DL (1.8-2.4) L Total Bilirubin 0.4 MG/DL (0.2-1.0) 0.3 MG/DL (0.2-1.0) Aspartate Amino Transf (AST/SGOT) 47 U/L (15-37) H 29 U/L (15-37) Alanine Aminotransferase (ALT/SGPT) 32 U/L (12-78) 29 U/L (12-78) Alkaline Phosphatase 57 U/L (46-116) 48 U/L (46-116) Total Creatine Kinase 72 U/L (26-308) Creatine Kinase MB < 0.5 NG/ML (0.0-3.6) Creatine Kinase MB Relative Index 0.6 Troponin I 0.000 ng/mL (0.000-0.056) Total Protein 7.4 G/DL (6.4-8.2) 6.2 G/DL (6.4-8.2) L Albumin 2.5 G/DL (3.4-5.0) L 2.1 G/DL (3.4-5.0) L Globulin 4.9 g/dL 4.1 g/dL Albumin/Globulin Ratio 0.5 (1.0-2.7) L 0.5 (1.0-2.7) L Urine Color Yellow Pale yellow Urine Appearance Slightly cloudy Clear Urine pH 5 (4.5-8.0) 6 (4.5-8.0) Urine Specific [place] 1.015 (1.005-1.035) 1.010 (1.005-1.035) Urine Protein Negative (NEGATIVE) 1+ (NEGATIVE) H Urine Glucose (UA) Negative (NEGATIVE) Negative (NEGATIVE) Urine Ketones Negative (NEGATIVE) Negative (NEGATIVE) Urine Occult Blood 2+ (NEGATIVE) H 4+ (NEGATIVE) H Urine Nitrite Negative (NEGATIVE) Negative (NEGATIVE) Urine Bilirubin Negative (NEGATIVE) Negative (NEGATIVE) Urine Urobilinogen Normal MG/DL (0.0-1.0) Normal MG/DL (0.0-1.0) Urine Leukocyte Esterase 3+ (NEGATIVE) H 2+ (NEGATIVE) H Urine RBC 2-4 /HPF (0 - 0) H 5-10 /HPF (0 - 0) H Urine WBC 10-15 /HPF (0 - 0) H 40-60 /HPF (0 - 0) H Urine Squamous Epithelial Cells Occasional /LPF Few /LPF (NONE/OCC) Urine Bacteria Few /HPF (NONE) Few /HPF (NONE) Urine Eosinophils None seen Urine Random Sodium 59 mmol/L (20-110) Urine Potassium Timed 12 mmol/L (12-62) Uric Acid 3.6 MG/DL (2.6-7.2) Direct Bilirubin < 0.1 MG/DL (0.0-0.3) Phenytoin (Dilantin) Level 14.2 ug/mL (10-20) Test 11/03/17 08:00 Arterial Blood pH 7.309 (7.350-7.450) Arterial Blood Partial Pressure CO2 40.9 mmHg (35.0-45.0) Arterial Blood Partial Pressure O2 141.4 mmHg (75.0-100.0) H Arterial Blood HCO3 19.9 mmol/L (22.0-26.0) L Arterial Blood Oxygen Saturation 98.1 % (92.0-98.0) H Arterial Blood Base Excess -5.9 Arpit Test Positive Kimberlyn Torres MD Nov 03, 2017 09:33
[2017-11-03] MEDS: Pantoprazole Inj IVP SCH (09:47)
[2017-11-03] MEDS: Heparin 5000 units/ml inj SUBQ SCH ×2 (09:48→20:32)
[2017-11-03] MEDS ORDERED: LORazepam Inj 2mg/ml 1ml IV PRN (10:15)
--- NOTE | 2017-11-03 10:18 | Cardiology Progress Note ---
Assessment/Plan Assessment/Plan hypotension related to violume depetion as well as sepsis sepssi due to uti uti tereso related to increased vagal tone renal inusf dm htn hypoalbuminemia lieky protein calorie malnutrition cva 1999. 2008 aphasic hyperlipidemain pud with gib hx decub ulcer, allergies : flagyl vomittign adn letharic keep hydrating iv abx mg supplemet reepat ekg nutrition ;supplement [id number] sh quit smoking 20 year earelri , no eto h no drug eats with family no vomit no diarrhea no complaint forpain no sob no cough, fever yest , is bed boudn but is able to stand with assistnce only Objective Last 24 Hour Vital Signs Date Time Temp Pulse Resp B/P (MAP) Pulse Ox O2 Delivery O2 Flow Rate FiO2 11/03/17 10:00 60 22 93/43 100 Nasal Cannula 2.0 11/03/17 09:00 62 19 100/51 100 Nasal Cannula 2.0 11/03/17 08:00 98.9 62 20 91/44 100 Nasal Cannula 2.0 98.9 11/03/17 07:00 71 15 102/36 100 Nasal Cannula 2.0 11/03/17 06:45 63 16 108/48 100 Nasal Cannula 2.0 11/03/17 06:30 63 16 107/43 100 Nasal Cannula 2.0 11/03/17 06:15 64 20 104/42 100 Nasal Cannula 2.0 11/03/17 06:00 64 15 111/46 100 Nasal Cannula 2.0 11/03/17 05:45 62 15 102/41 100 Nasal Cannula 2.0 11/03/17 05:30 63 25 101/42 100 Nasal Cannula 2.0 11/03/17 05:15 62 22 99/40 100 Nasal Cannula 2.0 11/03/17 05:00 61 17 99/40 100 Nasal Cannula 2.0 11/03/17 04:45 62 20 99/45 100 Nasal Cannula 2.0 11/03/17 04:30 61 18 96/45 100 Nasal Cannula 2.0 11/03/17 04:15 65 19 103/48 100 Nasal Cannula 2.0 11/03/17 04:00 99.1 68 20 94/46 100 Nasal Cannula 2.0 99.1 11/03/17 04:00 63 11/03/17 03:45 62 20 90/38 100 Nasal Cannula 2.0 11/03/17 03:30 63 20 93/42 100 Nasal Cannula 2.0 11/03/17 03:15 64 18 93/42 100 Nasal Cannula 2.0 11/03/17 03:00 64 22 95/39 100 Nasal Cannula 2.0 11/03/17 02:45 65 22 93/41 100 Nasal Cannula 2.0 11/03/17 02:30 65 20 93/34 100 Nasal Cannula 2.0 11/03/17 02:15 65 20 100/40 100 Nasal Cannula 2.0 11/03/17 02:00 65 20 100/41 100 Nasal Cannula 2.0 11/03/17 01:45 65 21 103/39 100 Nasal Cannula 2.0 11/03/17 01:30 63 20 102/41 100 Nasal Cannula 2.0 11/03/17 01:00 62 20 103/43 100 Nasal Cannula 2.0 11/03/17 00:15 88/45 11/03/17 00:00 98.1 100 12 88/45 100 Nasal Cannula 2.0 98.1 11/03/17 00:00 63 11/02/17 23:45 63 17 88/44 100 Nasal Cannula 2.0 11/02/17 23:15 63 17 92/43 100 Nasal Cannula 2.0 11/02/17 23:00 63 21 89/41 100 Nasal Cannula 2.0 11/02/17 22:45 64 17 102/50 100 Nasal Cannula 2.0 11/02/17 22:00 63 18 110/49 100 Nasal Cannula 2.0 11/02/17 21:00 64 18 115/50 100 Nasal Cannula 2.0 11/02/17 20:00 64 11/02/17 20:00 65 17 116/61 100 Nasal Cannula 2.0 11/02/17 19:30 98.3 60 12 112/55 100 Nasal Cannula 2.0 98.3 11/02/17 19:00 60 17 101/50 100 Nasal Cannula 2.0 11/02/17 18:30 61 16 104/51 100 Nasal Cannula 2.0 11/02/17 18:00 98.3 60 16 107/54 100 Nasal Cannula 2.0 98.3 11/02/17 17:30 59 16 103/55 100 Nasal Cannula 2.0 11/02/17 17:00 58 17 103/53 100 Nasal Cannula 2.0 11/02/17 17:00 103/53 11/02/17 16:30 60 16 94/50 100 Nasal Cannula 2.0 11/02/17 16:00 101/49 11/02/17 16:00 62 16 98/54 100 Nasal Cannula 2.0 11/02/17 15:37 98.0 63 24 99/43 100 Room Air 213.8 11/02/17 15:30 63 18 97/48 100 Nasal Cannula 2.0 11/02/17 15:00 98.2 65 13 97/51 100 Room Air 98.2 11/02/17 15:00 97/51 11/02/17 14:39 101/49 11/02/17 14:32 64 16 103/45 100 Room Air 11/02/17 14:31 66 15 84/41 100 Room Air 11/02/17 14:27 84/41 11/02/17 14:22 82/38 11/02/17 13:05 98.0 11/02/17 13:00 73 19 82/38 100 Room Air 11/02/17 12:35 101.0 11/02/17 12:30 73 22 78/38 100 Room Air 11/02/17 11:46 74 28 Room Air 11/02/17 11:36 99.0 74 28 90/46 98 Room Air 99.0 11/02/17 11:30 101.0 75 25 86/44 98 Room Air 101.0 Intake and Output 11/02/17 11/03/17 19:00 07:00 Intake Total 2962.5 ml 1301.67 ml Output Total 180 ml 1250 ml Balance 2782.5 ml 51.67 ml Intake Oral 0 ml 0 ml IV Total 2962.5 ml 1241.67 ml Other 60 ml Output Urine Total 180 ml 1250 ml # Voids 1 Laboratory Tests Test 11/02/17 12:00 11/02/17 12:30 11/03/17 03:30 11/03/17 03:40 White Blood Count 16.6 K/UL (4.8-10.8) H 10.3 K/UL (4.8-10.8) Red Blood Count 3.54 M/UL (4.70-6.10) L 2.83 M/UL (4.70-6.10) L Hemoglobin 11.7 G/DL (14.2-18.0) L 9.2 G/DL (14.2-18.0) L Hematocrit 33.0 % (42.0-52.0) L 26.2 % (42.0-52.0) L Mean Corpuscular Volume 93 FL (80-99) 93 FL (80-99) Mean Corpuscular Hemoglobin 33.0 PG (27.0-31.0) H 32.6 PG (27.0-31.0) H Mean Corpuscular Hemoglobin Concent 35.4 G/DL (32.0-36.0) 35.1 G/DL (32.0-36.0) Red Cell Distribution Width 12.6 % (11.6-14.8) 12.7 % (11.6-14.8) Platelet Count 144 K/UL (150-450) L 116 K/UL (150-450) L Mean Platelet Volume 6.3 FL (6.5-10.1) L 6.8 FL (6.5-10.1) Neutrophils (%) (Auto) 72.0 % (45.0-75.0) 66.7 % (45.0-75.0) Lymphocytes (%) (Auto) 20.1 % (20.0-45.0) 23.1 % (20.0-45.0) Monocytes (%) (Auto) 7.2 % (1.0-10.0) 8.0 % (1.0-10.0) Eosinophils (%) (Auto) 0.1 % (0.0-3.0) 1.8 % (0.0-3.0) Basophils (%) (Auto) 0.6 % (0.0-2.0) 0.5 % (0.0-2.0) Prothrombin Time 11.6 SEC (9.30-11.50) H Prothromb Time International Ratio 1.1 (0.9-1.1) Activated Partial Thromboplast Time 31 SEC (23-33) Sodium Level 131 MMOL/L (136-145) L 140 MMOL/L (136-145) Potassium Level 4.8 MMOL/L (3.5-5.1) 3.8 MMOL/L (3.5-5.1) Chloride Level 99 MMOL/L (98-107) 109 MMOL/L (98-107) H Carbon Dioxide Level 26 MMOL/L (21-32) 21 MMOL/L (21-32) Anion Gap 7 mmol/L (5-15) 10 mmol/L (5-15) Blood Urea Nitrogen 44 mg/dL (7-18) H 32 mg/dL (7-18) H Creatinine 1.6 MG/DL (0.55-1.30) H 1.0 MG/DL (0.55-1.30) Estimat Glomerular Filtration Rate mL/min (>60) mL/min (>60) Glucose Level 173 MG/DL (74-106) H 88 MG/DL (74-106) Lactic Acid Level 1.10 mmol/L (0.66-2.22) Calcium Level 8.5 MG/DL (8.5-10.1) 7.8 MG/DL (8.5-10.1) L Magnesium Level 1.7 MG/DL (1.8-2.4) L 1.6 MG/DL (1.8-2.4) L Total Bilirubin 0.4 MG/DL (0.2-1.0) 0.3 MG/DL (0.2-1.0) Aspartate Amino Transf (AST/SGOT) 47 U/L (15-37) H 29 U/L (15-37) Alanine Aminotransferase (ALT/SGPT) 32 U/L (12-78) 29 U/L (12-78) Alkaline Phosphatase 57 U/L (46-116) 48 U/L (46-116) Total Creatine Kinase 72 U/L (26-308) Creatine Kinase MB < 0.5 NG/ML (0.0-3.6) Creatine Kinase MB Relative Index 0.6 Troponin I 0.000 ng/mL (0.000-0.056) Total Protein 7.4 G/DL (6.4-8.2) 6.2 G/DL (6.4-8.2) L Albumin 2.5 G/DL (3.4-5.0) L 2.1 G/DL (3.4-5.0) L Globulin 4.9 g/dL 4.1 g/dL Albumin/Globulin Ratio 0.5 (1.0-2.7) L 0.5 (1.0-2.7) L Urine Color Yellow Pale yellow Urine Appearance Slightly cloudy Clear Urine pH 5 (4.5-8.0) 6 (4.5-8.0) Urine Specific [place] 1.015 (1.005-1.035) 1.010 (1.005-1.035) Urine Protein Negative (NEGATIVE) 1+ (NEGATIVE) H Urine Glucose (UA) Negative (NEGATIVE) Negative (NEGATIVE) Urine Ketones Negative (NEGATIVE) Negative (NEGATIVE) Urine Occult Blood 2+ (NEGATIVE) H 4+ (NEGATIVE) H Urine Nitrite Negative (NEGATIVE) Negative (NEGATIVE) Urine Bilirubin Negative (NEGATIVE) Negative (NEGATIVE) Urine Urobilinogen Normal MG/DL (0.0-1.0) Normal MG/DL (0.0-1.0) Urine Leukocyte Esterase 3+ (NEGATIVE) H 2+ (NEGATIVE) H Urine RBC 2-4 /HPF (0 - 0) H 5-10 /HPF (0 - 0) H Urine WBC 10-15 /HPF (0 - 0) H 40-60 /HPF (0 - 0) H Urine Squamous Epithelial Cells Occasional /LPF Few /LPF (NONE/OCC) Urine Bacteria Few /HPF (NONE) Few /HPF (NONE) Urine Eosinophils None seen Urine Random Sodium 59 mmol/L (20-110) Urine Potassium Timed 12 mmol/L (12-62) Uric Acid 3.6 MG/DL (2.6-7.2) Direct Bilirubin < 0.1 MG/DL (0.0-0.3) Phenytoin (Dilantin) Level 14.2 ug/mL (10-20) Test 11/03/17 08:00 Arterial Blood pH 7.309 (7.350-7.450) Arterial Blood Partial Pressure CO2 40.9 mmHg (35.0-45.0) Arterial Blood Partial Pressure O2 141.4 mmHg (75.0-100.0) H Arterial Blood HCO3 19.9 mmol/L (22.0-26.0) L Arterial Blood Oxygen Saturation 98.1 % (92.0-98.0) H Arterial Blood Base Excess -5.9 Arpit Test Positive Microbiology Date/Time Source Procedure Growth Status 11/02/17 12:45 Nasal Nares Influenza Types A,B Antigen (ROHITH) - Final Complete 11/02/17 12:30 Urine,Clean Catch Urine Culture - Preliminary Gram Negative Bacillus 1 Resulted VAL SLADE Nov 03, 2017 10:18
--- NOTE | 2017-11-03 10:47 | Diagnostic Imaging Report ---
Indication: Cough, dyspnea Technique: One view of the chest Comparison: 11/02/2017 Findings: Suboptimal inspiration. Some crowding of the bronchovascular markings. Lungs and pleural spaces are otherwise clear. The heart size is normal. The aorta is tortuous and calcified Impression: No acute process
--- NOTE | 2017-11-03 11:34 | Consultation ---
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 Was hypotensive and fever of 101 at the wound care center. In ED, bradycardic and hypotensive and stated on pressors and admitted to ICU. No vomiting, diarrhea, SOB, cough FEbrile to 101, now afegrile in 24hrs. Leukocytosis up to 16, now rseolved, ucx growing GNB; bcx p. CXR neg. Now off pressors. Allergies: Coded Allergies: NO KNOWN DRUG ALLERGIES (Verified Allergy, Unknown, 08/08/16) Medication History Scheduled Amlodipine Besylate (Norvasc), 5 MG ORAL HS, (Reported) Benazepril Hcl* (Benazepril Hcl*), 20 MG ORAL EVERY 12 HOURS, (Reported) Fenofibrate (Tricor), 145 MG ORAL HS, (Reported) Labetalol HCl (Labetalol HCl), 100 MG ORAL DAILY, (Reported) Phenytoin Sodium Extended* (Dilantin*), 300 MG ORAL BEDTIME, (Reported) Phenytoin Sodium Extended* (Dilantin*), 400 MG ORAL BEDTIME, (Reported) Scheduled PRN Acetaminophen* (Tylenol Extra Strength*), 500 MG ORAL Q6H PRN for Mild Pain/ Temp > 100.5, (Reported) Miscellaneous Medications Glyburide (Glyburide), 2.5 MG PO, (Reported) Patient History Healthcare decision maker Resuscitation status Full Code Advanced Directive on File Patient History Narrative PMhx: as above Shx: quit smoking 20 years ago , no etoh, no drug Fhx: non contributory Review of Systems ROS Narrative unable to obtain Physical Exam Physical Exam Narrative General Appearance: cachetic Lines, tubes and drains: peripheral HEENT: normocephalic, atraumatic Neck: non-tender, normal alignment Respiratory/Chest: rhonchi - left, rhonchi - right Breasts: no masses Cardiovascular/Chest: normal peripheral pulses Abdomen: normal bowel sounds, non tender Genitourinary/Rectal: normal genital exam, normal rectal exam Extremities: normal range of motion, non-tender Neurologic: meal cook II-XII grossly normal Last 24 Hour Vital Signs Date Time Temp Pulse Resp B/P (MAP) Pulse Ox O2 Delivery O2 Flow Rate FiO2 11/03/17 10:24 100 Nasal Cannula 2.0 28 11/03/17 10:23 Nasal Cannula 2.0 28 11/03/17 10:21 61 20 Nasal Cannula 2.0 28 11/03/17 10:00 60 22 93/43 100 Nasal Cannula 2.0 11/03/17 09:00 62 19 100/51 100 Nasal Cannula 2.0 11/03/17 08:00 98.9 62 20 91/44 100 Nasal Cannula 2.0 98.9 11/03/17 07:23 71 11/03/17 07:00 71 15 102/36 100 Nasal Cannula 2.0 11/03/17 06:45 63 16 108/48 100 Nasal Cannula 2.0 11/03/17 06:30 63 16 107/43 100 Nasal Cannula 2.0 11/03/17 06:15 64 20 104/42 100 Nasal Cannula 2.0 11/03/17 06:00 64 15 111/46 100 Nasal Cannula 2.0 11/03/17 05:45 62 15 102/41 100 Nasal Cannula 2.0 11/03/17 05:30 63 25 101/42 100 Nasal Cannula 2.0 11/03/17 05:15 62 22 99/40 100 Nasal Cannula 2.0 11/03/17 05:00 61 17 99/40 100 Nasal Cannula 2.0 11/03/17 04:45 62 20 99/45 100 Nasal Cannula 2.0 11/03/17 04:30 61 18 96/45 100 Nasal Cannula 2.0 11/03/17 04:15 65 19 103/48 100 Nasal Cannula 2.0 11/03/17 04:00 99.1 68 20 94/46 100 Nasal Cannula 2.0 99.1 11/03/17 04:00 63 11/03/17 03:45 62 20 90/38 100 Nasal Cannula 2.0 11/03/17 03:30 63 20 93/42 100 Nasal Cannula 2.0 11/03/17 03:15 64 18 93/42 100 Nasal Cannula 2.0 11/03/17 03:00 64 22 95/39 100 Nasal Cannula 2.0 11/03/17 02:45 65 22 93/41 100 Nasal Cannula 2.0 11/03/17 02:30 65 20 93/34 100 Nasal Cannula 2.0 11/03/17 02:15 65 20 100/40 100 Nasal Cannula 2.0 11/03/17 02:00 65 20 100/41 100 Nasal Cannula 2.0 11/03/17 01:45 65 21 103/39 100 Nasal Cannula 2.0 11/03/17 01:30 63 20 102/41 100 Nasal Cannula 2.0 11/03/17 01:00 62 20 103/43 100 Nasal Cannula 2.0 11/03/17 00:15 88/45 11/03/17 00:00 98.1 100 12 88/45 100 Nasal Cannula 2.0 98.1 11/03/17 00:00 63 11/02/17 23:45 63 17 88/44 100 Nasal Cannula 2.0 11/02/17 23:15 63 17 92/43 100 Nasal Cannula 2.0 11/02/17 23:00 63 21 89/41 100 Nasal Cannula 2.0 11/02/17 22:45 64 17 102/50 100 Nasal Cannula 2.0 11/02/17 22:00 63 18 110/49 100 Nasal Cannula 2.0 11/02/17 21:00 64 18 115/50 100 Nasal Cannula 2.0 11/02/17 20:00 64 11/02/17 20:00 65 17 116/61 100 Nasal Cannula 2.0 11/02/17 19:30 98.3 60 12 112/55 100 Nasal Cannula 2.0 98.3 11/02/17 19:00 60 17 101/50 100 Nasal Cannula 2.0 11/02/17 18:30 61 16 104/51 100 Nasal Cannula 2.0 11/02/17 18:00 98.3 60 16 107/54 100 Nasal Cannula 2.0 98.3 11/02/17 17:30 59 16 103/55 100 Nasal Cannula 2.0 11/02/17 17:00 58 17 103/53 100 Nasal Cannula 2.0 11/02/17 17:00 103/53 11/02/17 16:30 60 16 94/50 100 Nasal Cannula 2.0 11/02/17 16:00 101/49 4/23/18 16:00 62 16 98/54 100 Nasal Cannula 2.0 11/02/17 15:37 98.0 63 24 99/43 100 Room Air 213.8 11/02/17 15:30 63 18 97/48 100 Nasal Cannula 2.0 11/02/17 15:00 98.2 65 13 97/51 100 Room Air 98.2 11/02/17 15:00 97/51 11/02/17 14:39 101/49 11/02/17 14:32 64 16 103/45 100 Room Air 11/02/17 14:31 66 15 84/41 100 Room Air 11/02/17 14:27 84/41 11/02/17 14:22 82/38 11/02/17 13:05 98.0 11/02/17 13:00 73 19 82/38 100 Room Air 11/02/17 12:35 101.0 11/02/17 12:30 73 22 78/38 100 Room Air 11/02/17 11:46 74 28 Room Air 11/02/17 11:36 99.0 74 28 90/46 98 Room Air 99.0 11/02/17 11:30 101.0 75 25 86/44 98 Room Air 101.0 Intake and Output 11/02/17 11/03/17 19:00 07:00 Intake Total 2962.5 ml 1301.67 ml Output Total 180 ml 1250 ml Balance 2782.5 ml 51.67 ml Intake Oral 0 ml 0 ml IV Total 2962.5 ml 1241.67 ml Other 60 ml Output Urine Total 180 ml 1250 ml # Voids 1 Laboratory Tests Test 11/02/17 12:00 11/02/17 12:30 11/03/17 03:30 11/03/17 03:40 White Blood Count 16.6 K/UL (4.8-10.8) H 10.3 K/UL (4.8-10.8) Red Blood Count 3.54 M/UL (4.70-6.10) L 2.83 M/UL (4.70-6.10) L Hemoglobin 11.7 G/DL (14.2-18.0) L 9.2 G/DL (14.2-18.0) L Hematocrit 33.0 % (42.0-52.0) L 26.2 % (42.0-52.0) L Mean Corpuscular Volume 93 FL (80-99) 93 FL (80-99) Mean Corpuscular Hemoglobin 33.0 PG (27.0-31.0) H 32.6 PG (27.0-31.0) H Mean Corpuscular Hemoglobin Concent 35.4 G/DL (32.0-36.0) 35.1 G/DL (32.0-36.0) Red Cell Distribution Width 12.6 % (11.6-14.8) 12.7 % (11.6-14.8) Platelet Count 144 K/UL (150-450) L 116 K/UL (150-450) L Mean Platelet Volume 6.3 FL (6.5-10.1) L 6.8 FL (6.5-10.1) Neutrophils (%) (Auto) 72.0 % (45.0-75.0) 66.7 % (45.0-75.0) Lymphocytes (%) (Auto) 20.1 % (20.0-45.0) 23.1 % (20.0-45.0) Monocytes (%) (Auto) 7.2 % (1.0-10.0) 8.0 % (1.0-10.0) Eosinophils (%) (Auto) 0.1 % (0.0-3.0) 1.8 % (0.0-3.0) Basophils (%) (Auto) 0.6 % (0.0-2.0) 0.5 % (0.0-2.0) Prothrombin Time 11.6 SEC (9.30-11.50) H Prothromb Time International Ratio 1.1 (0.9-1.1) Activated Partial Thromboplast Time 31 SEC (23-33) Sodium Level 131 MMOL/L (136-145) L 140 MMOL/L (136-145) Potassium Level 4.8 MMOL/L (3.5-5.1) 3.8 MMOL/L (3.5-5.1) Chloride Level 99 MMOL/L (98-107) 109 MMOL/L (98-107) H Carbon Dioxide Level 26 MMOL/L (21-32) 21 MMOL/L (21-32) Anion Gap 7 mmol/L (5-15) 10 mmol/L (5-15) Blood Urea Nitrogen 44 mg/dL (7-18) H 32 mg/dL (7-18) H Creatinine 1.6 MG/DL (0.55-1.30) H 1.0 MG/DL (0.55-1.30) Estimat Glomerular Filtration Rate mL/min (>60) mL/min (>60) Glucose Level 173 MG/DL (74-106) H 88 MG/DL (74-106) Lactic Acid Level 1.10 mmol/L (0.66-2.22) Calcium Level 8.5 MG/DL (8.5-10.1) 7.8 MG/DL (8.5-10.1) L Magnesium Level 1.7 MG/DL (1.8-2.4) L 1.6 MG/DL (1.8-2.4) L Total Bilirubin 0.4 MG/DL (0.2-1.0) 0.3 MG/DL (0.2-1.0) Aspartate Amino Transf (AST/SGOT) 47 U/L (15-37) H 29 U/L (15-37) Alanine Aminotransferase (ALT/SGPT) 32 U/L (12-78) 29 U/L (12-78) Alkaline Phosphatase 57 U/L (46-116) 48 U/L (46-116) Total Creatine Kinase 72 U/L (26-308) Creatine Kinase MB < 0.5 NG/ML (0.0-3.6) Creatine Kinase MB Relative Index 0.6 Troponin I 0.000 ng/mL (0.000-0.056) Total Protein 7.4 G/DL (6.4-8.2) 6.2 G/DL (6.4-8.2) L Albumin 2.5 G/DL (3.4-5.0) L 2.1 G/DL (3.4-5.0) L Globulin 4.9 g/dL 4.1 g/dL Albumin/Globulin Ratio 0.5 (1.0-2.7) L 0.5 (1.0-2.7) L Urine Color Yellow Pale yellow Urine Appearance Slightly cloudy Clear Urine pH 5 (4.5-8.0) 6 (4.5-8.0) Urine Specific [place] 1.015 (1.005-1.035) 1.010 (1.005-1.035) Urine Protein Negative (NEGATIVE) 1+ (NEGATIVE) H Urine Glucose (UA) Negative (NEGATIVE) Negative (NEGATIVE) Urine Ketones Negative (NEGATIVE) Negative (NEGATIVE) Urine Occult Blood 2+ (NEGATIVE) H 4+ (NEGATIVE) H Urine Nitrite Negative (NEGATIVE) Negative (NEGATIVE) Urine Bilirubin Negative (NEGATIVE) Negative (NEGATIVE) Urine Urobilinogen Normal MG/DL (0.0-1.0) Normal MG/DL (0.0-1.0) Urine Leukocyte Esterase 3+ (NEGATIVE) H 2+ (NEGATIVE) H Urine RBC 2-4 /HPF (0 - 0) H 5-10 /HPF (0 - 0) H Urine WBC 10-15 /HPF (0 - 0) H 40-60 /HPF (0 - 0) H Urine Squamous Epithelial Cells Occasional /LPF Few /LPF (NONE/OCC) Urine Bacteria Few /HPF (NONE) Few /HPF (NONE) Urine Eosinophils None seen Urine Random Sodium 59 mmol/L (20-110) Urine Potassium Timed 12 mmol/L (12-62) Uric Acid 3.6 MG/DL (2.6-7.2) Direct Bilirubin < 0.1 MG/DL (0.0-0.3) Phenytoin (Dilantin) Level 14.2 ug/mL (10-20) Test 11/03/17 08:00 Arterial Blood pH 7.309 (7.350-7.450) Arterial Blood Partial Pressure CO2 40.9 mmHg (35.0-45.0) Arterial Blood Partial Pressure O2 141.4 mmHg (75.0-100.0) H Arterial Blood HCO3 19.9 mmol/L (22.0-26.0) L Arterial Blood Oxygen Saturation 98.1 % (92.0-98.0) H Arterial Blood Base Excess -5.9 Arpit Test Positive Microbiology Date/Time Source Procedure Growth Status 11/02/17 12:45 Nasal Nares Influenza Types A,B Antigen (ROHITH) - Final Complete 11/02/17 12:30 Urine,Clean Catch Urine Culture - Preliminary Gram Negative Bacillus 1 Resulted Height (Feet): 5 Height (Inches): 7.00 Weight (Pounds): 140 Medications Current Medications Medications (Trade) Dose Ordered Sig/Arley Route PRN Reason Start Time Stop Time Status Last Admin Dose Admin Acetaminophen (Tylenol) 650 mg Q4H PRN ORAL fever 11/02/17 13:30 12/02/17 13:29 Albuterol/ Ipratropium (Albuterol/ Ipratropium) 3 ml EVERY 4 HOURS PRN HHN Shortness of Breath 11/02/17 13:30 11/07/17 13:29 Amikacin Protocol (Amikacin pharmacy to dose) 1 ea DAILY PRN MISC RX TO DOSE 11/02/17 15:00 12/02/17 14:59 Amikacin Sulfate 625 mg/Sodium Chloride 112.5 ml @ 112.5 mls/ hr Q24H IV 11/04/17 06:00 11/11/17 05:59 Chlorhexidine Gluconate (Desire-Hex 2%) 1 applic DAILY@2000 TOPIC 11/03/17 20:00 12/03/17 19:59 Ertapenem 1 gm/ Sodium Chloride 55 ml @ 110 mls/hr Q24H IV 11/02/17 16:00 11/07/17 23:59 11/02/17 16:29 Heparin Sodium (Porcine) (Heparin 5000 units/ml) 5,000 units EVERY 12 HOURS SUBQ 11/02/17 21:00 12/02/17 20:59 11/03/17 09:48 Lorazepam (Ativan 2mg/ml 1ml) 1 mg Q2H PRN IV For Seizures 11/03/17 10:15 11/10/17 10:14 Magnesium Sulfate 100 ml @ 100 mls/hr Q1H IVPB 11/03/17 10:00 11/03/17 11:59 11/03/17 09:47 Morphine Sulfate (Morphine Sulfate) 2 mg EVERY 4 HOURS PRN IVP Severe Pain (Pain Scale 7-10) 11/02/17 13:30 11/09/17 13:29 Norepinephrine Bitartrate 4 mg/ Dextrose 254 ml @ 0 mls/hr Q24H IV 11/02/17 14:39 12/02/17 14:38 11/03/17 00:15 Ondansetron HCl (Zofran) 4 mg Q6H PRN IVP Nausea & Vomiting 11/02/17 13:30 12/02/17 13:29 Pantoprazole (Protonix) 40 mg DAILY IVP 11/03/17 09:00 5/24/18 08:59 11/03/17 09:47 Phenytoin (Dilantin) 400 mg BEDTIME ORAL 11/02/17 21:00 12/02/17 20:59 11/02/17 20:17 Polyethylene Glycol (Miralax) 17 gm DAILYPRN PRN ORAL Constipation 11/02/17 13:30 12/02/17 13:29 Sodium Chloride 1,000 ml @ 100 mls/hr Q10H IVLG 11/02/17 14:39 12/02/17 14:38 11/03/17 09:47 Vancomycin HCl (Vanco rx to dose) 1 ea DAILY PRN MISC RX TO DOSE 11/02/17 15:15 12/02/17 15:14 Vancomycin HCl/ Dextrose 250 ml @ 166.667 mls/hr Q24H IVPB 11/03/17 13:00 11/08/17 12:59 Assessment/Plan Assessment/Plan Abx: IV Ertapenem 11/02- IV Amikacin 11/02- IV Vanco 11/02- Unasyn x1 11/02 Assessment: Septic shock likely 2ry to UTI- r/o bacteremia -u/a WBC 40-60, nit neg, luek +2; ucx >100K GNR -Bcx p -CXR: No acute process -influenza sc neg Fever/leukocytosis, improving KAMILLE, improving Encephalopathy- 2ry to above HTN Dm2 CVA x2 (1999, 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 Will continue to follow along with you. Discussed with Anayeli Epstein M.D. Nov 03, 2017 11:34
[2017-11-03] MEDS ORDERED: Vancomycin 1gm/D5W 275ml IVPB SCH ×2 (13:00)
[2017-11-03] MEDS ORDERED: Vancomycin 1250mg/D5W 250ml IVPB SCH (13:00)
--- NOTE | 2017-11-03 13:43 | Cardiology Report ---
APPROVED REPORT EKG Measurement Heart [id number] MD [id number] Normal sinus rhythm Normal ECG
[2017-11-03] MEDS: NS IVPB SCH ×2 (14:35→22:07)
[2017-11-03] MEDS: MEROPENEM IVPB SCH ×2 (14:35→22:07)
--- NOTE | 2017-11-03 18:13 | Consultation ---
History of Present Illness General Date patient seen: Nov 03, 2017 Time patient seen: 18:09 Chief Complaint: Fever Referring physician: Melissa Reason for Consultation: Hematuria Present Illness HPI 72 yo male with hx of non healing wound being managed at wound center. Was transferred due to hypotension and sepsis rule out. Patient was on levophed drip for some time. Urine output was questionable. On nursing attempt at fox placement, blood noted at meatus. No prostate history per daughter or per medical records. Allergies: Coded Allergies: NO KNOWN DRUG ALLERGIES (Verified Allergy, Unknown, 08/08/16) Medication History Scheduled Amlodipine Besylate (Norvasc), 5 MG ORAL HS, (Reported) Benazepril Hcl* (Benazepril Hcl*), 20 MG ORAL EVERY 12 HOURS, (Reported) Fenofibrate (Tricor), 145 MG ORAL HS, (Reported) Labetalol HCl (Labetalol HCl), 100 MG ORAL DAILY, (Reported) Phenytoin Sodium Extended* (Dilantin*), 300 MG ORAL BEDTIME, (Reported) Phenytoin Sodium Extended* (Dilantin*), 400 MG ORAL BEDTIME, (Reported) Scheduled PRN Acetaminophen* (Tylenol Extra Strength*), 500 MG ORAL Q6H PRN for Mild Pain/ Temp > 100.5, (Reported) Miscellaneous Medications Glyburide (Glyburide), 2.5 MG PO, (Reported) Patient History Limited by: language barrier History Provided By: Medical Record Healthcare decision maker Resuscitation status Full Code Advanced Directive on File Past Medical/Surgical History Past Medical/Surgical History: (1) Sacral osteomyelitis (2) Wound of sacral region (3) Diabetes mellitus (4) History of hypertension (5) History of CVA (cerebrovascular accident) Review of Systems All Other Systems: negative except mentioned in HPI Physical Exam General Appearance: no apparent distress HEENT: atraumatic Neck: supple Respiratory/Chest: lungs clear Abdomen: soft, distended Genitourinary/Rectal: other - uncircumcised penis, blood at meatus Last 24 Hour Vital Signs Date Time Temp Pulse Resp B/P (MAP) Pulse Ox O2 Delivery O2 Flow Rate FiO2 11/03/17 17:00 97.6 73 19 119/46 100 Nasal Cannula 2.0 97.6 11/03/17 16:00 63 13 111/47 100 Nasal Cannula 2.0 11/03/17 15:50 64 11/03/17 15:00 63 19 101/45 100 Nasal Cannula 2.0 11/03/17 14:00 67 17 104/44 100 Nasal Cannula 2.0 11/03/17 13:00 61 13 95/50 100 Nasal Cannula 2.0 11/03/17 12:03 67 11/03/17 12:00 97.8 63 14 81/34 100 Nasal Cannula 2.0 97.8 11/03/17 11:00 57 19 94/48 100 Nasal Cannula 2.0 11/03/17 10:24 100 Nasal Cannula 2.0 28 11/03/17 10:23 Nasal Cannula 2.0 28 11/03/17 10:21 61 20 Nasal Cannula 2.0 28 11/03/17 10:00 60 22 93/43 100 Nasal Cannula 2.0 11/03/17 09:00 62 19 100/51 100 Nasal Cannula 2.0 11/03/17 08:00 98.9 62 20 91/44 100 Nasal Cannula 2.0 98.9 11/03/17 07:23 71 11/03/17 07:00 71 15 102/36 100 Nasal Cannula 2.0 11/03/17 06:45 63 16 108/48 100 Nasal Cannula 2.0 11/03/17 06:30 63 16 107/43 100 Nasal Cannula 2.0 11/03/17 06:15 64 20 104/42 100 Nasal Cannula 2.0 11/03/17 06:00 64 15 111/46 100 Nasal Cannula 2.0 11/03/17 05:45 62 15 102/41 100 Nasal Cannula 2.0 11/03/17 05:30 63 25 101/42 100 Nasal Cannula 2.0 11/03/17 05:15 62 22 99/40 100 Nasal Cannula 2.0 11/03/17 05:00 61 17 99/40 100 Nasal Cannula 2.0 11/03/17 04:45 62 20 99/45 100 Nasal Cannula 2.0 11/03/17 04:30 61 18 96/45 100 Nasal Cannula 2.0 11/03/17 04:15 65 19 103/48 100 Nasal Cannula 2.0 11/03/17 04:00 99.1 68 20 94/46 100 Nasal Cannula 2.0 99.1 11/03/17 04:00 63 11/03/17 03:45 62 20 90/38 100 Nasal Cannula 2.0 11/03/17 03:30 63 20 93/42 100 Nasal Cannula 2.0 11/03/17 03:15 64 18 93/42 100 Nasal Cannula 2.0 11/03/17 03:00 64 22 95/39 100 Nasal Cannula 2.0 11/03/17 02:45 65 22 93/41 100 Nasal Cannula 2.0 11/03/17 02:30 65 20 93/34 100 Nasal Cannula 2.0 11/03/17 02:15 65 20 100/40 100 Nasal Cannula 2.0 11/03/17 02:00 65 20 100/41 100 Nasal Cannula 2.0 11/03/17 01:45 65 21 103/39 100 Nasal Cannula 2.0 11/03/17 01:30 63 20 102/41 100 Nasal Cannula 2.0 11/03/17 01:00 62 20 103/43 100 Nasal Cannula 2.0 11/03/17 00:15 88/45 11/03/17 00:00 98.1 100 12 88/45 100 Nasal Cannula 2.0 98.1 11/03/17 00:00 63 11/02/17 23:45 63 17 88/44 100 Nasal Cannula 2.0 11/02/17 23:15 63 17 92/43 100 Nasal Cannula 2.0 11/02/17 23:00 63 21 89/41 100 Nasal Cannula 2.0 11/02/17 22:45 64 17 102/50 100 Nasal Cannula 2.0 11/02/17 22:00 63 18 110/49 100 Nasal Cannula 2.0 11/02/17 21:00 64 18 115/50 100 Nasal Cannula 2.0 11/02/17 20:00 64 11/02/17 20:00 65 17 116/61 100 Nasal Cannula 2.0 11/02/17 19:30 98.3 60 12 112/55 100 Nasal Cannula 2.0 98.3 11/02/17 19:00 60 17 101/50 100 Nasal Cannula 2.0 11/02/17 18:30 61 16 104/51 100 Nasal Cannula 2.0 Intake and Output 11/02/17 11/03/17 19:00 07:00 Intake Total 2962.5 ml 1301.67 ml Output Total 180 ml 1250 ml Balance 2782.5 ml 51.67 ml Intake Oral 0 ml 0 ml IV Total 2962.5 ml 1241.67 ml Other 60 ml Output Urine Total 180 ml 1250 ml # Voids 1 Laboratory Tests Test 11/03/17 03:30 11/03/17 03:40 11/03/17 08:00 White Blood Count 10.3 K/UL (4.8-10.8) Red Blood Count 2.83 M/UL (4.70-6.10) L Hemoglobin 9.2 G/DL (14.2-18.0) L Hematocrit 26.2 % (42.0-52.0) L Mean Corpuscular Volume 93 FL (80-99) Mean Corpuscular Hemoglobin 32.6 PG (27.0-31.0) H Mean Corpuscular Hemoglobin Concent 35.1 G/DL (32.0-36.0) Red Cell Distribution Width 12.7 % (11.6-14.8) Platelet Count 116 K/UL (150-450) L Mean Platelet Volume 6.8 FL (6.5-10.1) Neutrophils (%) (Auto) 66.7 % (45.0-75.0) Lymphocytes (%) (Auto) 23.1 % (20.0-45.0) Monocytes (%) (Auto) 8.0 % (1.0-10.0) Eosinophils (%) (Auto) 1.8 % (0.0-3.0) Basophils (%) (Auto) 0.5 % (0.0-2.0) Urine Color Pale yellow Urine Appearance Clear Urine pH 6 (4.5-8.0) Urine Specific [place] 1.010 (1.005-1.035) Urine Protein 1+ (NEGATIVE) H Urine Glucose (UA) Negative (NEGATIVE) Urine Ketones Negative (NEGATIVE) Urine Occult Blood 4+ (NEGATIVE) H Urine Nitrite Negative (NEGATIVE) Urine Bilirubin Negative (NEGATIVE) Urine Urobilinogen Normal MG/DL (0.0-1.0) Urine Leukocyte Esterase 2+ (NEGATIVE) H Urine RBC 5-10 /HPF (0 - 0) H Urine WBC 40-60 /HPF (0 - 0) H Urine Squamous Epithelial Cells Few /LPF (NONE/OCC) Urine Bacteria Few /HPF (NONE) Urine Eosinophils None seen Urine Random Sodium 59 mmol/L (20-110) Urine Potassium Timed 12 mmol/L (12-62) Sodium Level 140 MMOL/L (136-145) Potassium Level 3.8 MMOL/L (3.5-5.1) Chloride Level 109 MMOL/L (98-107) H Carbon Dioxide Level 21 MMOL/L (21-32) Anion Gap 10 mmol/L (5-15) Blood Urea Nitrogen 32 mg/dL (7-18) H Creatinine 1.0 MG/DL (0.55-1.30) Estimat Glomerular Filtration Rate mL/min (>60) Glucose Level 88 MG/DL (74-106) Uric Acid 3.6 MG/DL (2.6-7.2) Calcium Level 7.8 MG/DL (8.5-10.1) L Total Bilirubin 0.3 MG/DL (0.2-1.0) Direct Bilirubin < 0.1 MG/DL (0.0-0.3) Aspartate Amino Transf (AST/SGOT) 29 U/L (15-37) Alanine Aminotransferase (ALT/SGPT) 29 U/L (12-78) Alkaline Phosphatase 48 U/L (46-116) Total Protein 6.2 G/DL (6.4-8.2) L Albumin 2.1 G/DL (3.4-5.0) L Globulin 4.1 g/dL Albumin/Globulin Ratio 0.5 (1.0-2.7) L Phenytoin (Dilantin) Level 14.2 ug/mL (10-20) Magnesium Level 1.6 MG/DL (1.8-2.4) L Arterial Blood pH 7.309 (7.350-7.450) Arterial Blood Partial Pressure CO2 40.9 mmHg (35.0-45.0) Arterial Blood Partial Pressure O2 141.4 mmHg (75.0-100.0) H Arterial Blood HCO3 19.9 mmol/L (22.0-26.0) L Arterial Blood Oxygen Saturation 98.1 % (92.0-98.0) H Arterial Blood Base Excess -5.9 Arpit Test Positive Height (Feet): 5 Height (Inches): 7.00 Weight (Pounds): 140 Medications Current Medications Medications (Trade) Dose Ordered Sig/Arley Route PRN Reason Start Time Stop Time Status Last Admin Dose Admin Acetaminophen (Tylenol) 650 mg Q4H PRN ORAL fever 11/02/17 13:30 12/02/17 13:29 Albuterol/ Ipratropium (Albuterol/ Ipratropium) 3 ml EVERY 4 HOURS PRN HHN Shortness of Breath 11/02/17 13:30 11/07/17 13:29 Chlorhexidine Gluconate (Desire-Hex 2%) 1 applic DAILY@2000 TOPIC 11/03/17 20:00 12/03/17 19:59 Heparin Sodium (Porcine) (Heparin 5000 units/ml) 5,000 units EVERY 12 HOURS SUBQ 11/02/17 21:00 12/02/17 20:59 11/03/17 09:48 Lorazepam (Ativan 2mg/ml 1ml) 1 mg Q2H PRN IV For Seizures 11/03/17 10:15 11/10/17 10:14 Meropenem 2 gm/ Sodium Chloride 275 ml @ 275 mls/hr Q8HR IVPB 11/03/17 14:00 11/08/17 13:59 11/03/17 14:35 Morphine Sulfate (Morphine Sulfate) 2 mg EVERY 4 HOURS PRN IVP Severe Pain (Pain Scale 7-10) 11/02/17 13:30 11/09/17 13:29 Norepinephrine Bitartrate 4 mg/ Dextrose 254 ml @ 0 mls/hr Q24H IV 11/02/17 14:39 12/02/17 14:38 11/03/17 00:15 Ondansetron HCl (Zofran) 4 mg Q6H PRN IVP Nausea & Vomiting 11/02/17 13:30 12/02/17 13:29 Pantoprazole (Protonix) 40 mg DAILY IVP 11/03/17 09:00 12/03/17 08:59 11/03/17 09:47 Phenytoin (Dilantin) 400 mg BEDTIME ORAL 11/02/17 21:00 12/02/17 20:59 11/02/17 20:17 Polyethylene Glycol (Miralax) 17 gm DAILYPRN PRN ORAL Constipation 11/02/17 13:30 12/02/17 13:29 Sodium Chloride 1,000 ml @ 100 mls/hr Q10H IVLG 11/02/17 14:39 12/02/17 14:38 11/03/17 09:47 Vancomycin HCl (Vanco rx to dose) 1 ea DAILY PRN MISC RX TO DOSE 11/02/17 15:15 12/02/17 15:14 Vancomycin HCl/ Dextrose 250 ml @ 166.667 mls/hr Q24H IVPB 11/03/17 13:00 11/08/17 12:59 11/03/17 13:40 Objective Narrative Under sterile conditions [address] [place] [address] fox catheter placed. Bladder irrigated and on first suction large blood clot removed. Immediate evacuation of about 250 mL yellow urine. Bladder irrigated and no further blood clots seen. 30 mL water filled in balloon. Assessment/Plan Status: stable Assessment/Plan 72 yo male with likely sepsis, source is potential UTI. Was in retention, but possibly related to urethral irritation from prior catheter placement. New catheter in place. No irrigation required continuously at this point. Recommend observation of urine output and quality, culture specific abx. Patient is not catheter dependent at baseline. Once UTI properly treated, can remove catheter. 1. fox till UTI treated 2. irrigate fox prn hematuria/clots. Mauro Romo M.D. Nov 03, 2017 18:13
--- NOTE | 2017-11-03 19:15 | Consultation ---
DATE OF CONSULTATION: 11/03/2017 CARDIOLOGY CONSULTATION CONSULTING PHYSICIAN: Myron De Dios M.D. REFERRING PHYSICIAN: Kimberlyn Torres M.D. REASON FOR REFERRAL: Bradycardia and hypotension. HISTORY OF PRESENT ILLNESS: This is a very unfortunate elderly gentleman, who has a decubitus ulcer, came into [facility] for decubitus wound treatment, was noted to be hypotensive, transferred to the emergency room at [facility], and has subsequently been admitted to the intensive care unit. This consultation requested by Dr. Torres in terms of help with management of episode of hypotension that the patient has had, requiring pressors overnight as well as bradycardia that he has had during the night as well. The patient himself is unfortunately aphasic and unable to provide any meaningful history subsequent to two strokes that he has had before, minimally communicative with the family members only with yes or no questions and only with family members. Apparently, he does not communicate with others, and therefore, this information was obtained from the patient's family. There have been no reports of any chest pains or shortness of breath. In fact, per daughter, by whom information was provided, when she checked with him yesterday, there was no pain anywhere. The patient usually eats well. There has not been any reports of diarrhea or vomiting, and he drinks several glasses of water a day and occasionally his daughter has to administer some Pedialyte. According to her "he responds to that very well." There has been no fevers at home except for what was documented here. There is no diarrhea. PAST MEDICAL HISTORY: Positive for diabetes mellitus, hypertension. Apparently, diabetes is well controlled. He has had history of CVA in 1999 and again in 2008, and subsequently aphasic. He eats only with the help of his family members. According to his daughter, nursing staff usually he does not like to eat with. He has a history of hyperlipidemia that was treated. He has got a history of peptic ulcer disease, possible GI bleed. Previously, he has got decubitus ulcers. No history of heart attack. No cancer. No hepatitis or tuberculosis. No asthma or emphysema. No kidney problems, liver problems, thyroid problems, anemia, or arthritis according to his daughter. ALLERGIES: Flagyl, vomits and he becomes lethargic. SOCIAL HISTORY: He used to smoke, but quit that 20 years ago. No alcohol. No drugs. Lives at home and minimally ambulatory, mostly in the bed and he does stand up with maximum assistance with others. REVIEW OF SYSTEMS: GASTROINTESTINAL: There have been no reports of nausea, vomiting, or diarrhea. No black or bloody stools. GENITOURINARY: No problems with urination. PULMONARY: No coughing or wheezing. CONSTITUTIONAL: Fevers as noted here yesterday. NEUROLOGICAL: He is aphasic and minimally ambulatory as noted. PHYSICAL EXAMINATION: GENERAL: Shows to be elderly gentleman, in no respiratory distress. He is arousable and awake and responsive, not communicative. NECK: Supple. No jugular venous distention. LUNGS: Appear to be rather clear to auscultation and percussion. CARDIAC: Regular rate and rhythm. No heaves or thrills noted. ABDOMEN: Soft. No guarding. No rigidity. EXTREMITIES: There is no clubbing, cyanosis, nor edema. LABORATORY AND DIAGNOSTIC DATA: White count was 16.6, now down to 2.3; hemoglobin was 11.7 yesterday, now down to 9.2; and platelet count of 144 yesterday, now down to 116. ABGs, pH of 7.309, pCO2 of 40, pO2 of 141, and bicarbonate of 20 with 98% saturation. Sodium is 141, potassium 3.8, chloride 101, bicarbonate 21, BUN of 32, creatinine 1.1. Of note, his BUN and creatinine were 44 and 1.6 and now with hydration overnight 32 and 1.1. His magnesium is down to 1.6. His calcium is 7.8. Troponin on one occasion was 0 and his albumin of 2.1 and Dilantin level of 14.2. Urinalysis yesterday showed 10 to 15 wbc's, today 40 to 60 wbc's. His coags, INR 1.1 and PTT of 31. Urine cultures, positive for gram-negative bacilli greater than 100,000. Influenza A and B screen performed were negative. His vital signs, blood pressure has been as low as 78/38 yesterday to as high as 108/48 today. His heart rates ranged at times as low as 50s according to the nursing staff as high as 71 here. The patient's electrocardiogram performed, sinus rhythm, normal QRS axis, and no ST or T-wave abnormalities. Medications prior to admission include glyburide 5 mg, Dilantin, Norvasc 5 mg, labetalol 100 mg, vitamin D, fenofibric acid, and benazepril 20 mg. It appears the amlodipine is once a day, labetalol is probably once a day, and benazepril appears to be twice a day. Telemetry overnight, sinus rhythm. ASSESSMENT AND PLAN: 1. Hypotension secondary to sepsis and volume depletion. 2. Sepsis secondary to urinary tract infection. 3. Volume depletion. 4. Acute renal insufficiency, improved with hydration. 5. Diabetes mellitus. 6. Hypertension history, now hypotensive. 7. History of two prior cerebrovascular accidents with aphasia. 8. Decubitus ulcers, status post debridement. 9. Renal insufficiency. 10. Hypoalbuminemia, likely related to protein-calorie malnutrition. Dr. Torres, this patient was seen in cardiac consultation. The patient had been on some pressors overnight. His blood pressure has improved. Vasopressors can be discontinued. His bradycardia overnight is probably secondary to vagal related. The fact that his creatinine has improved from 1.6 down to 1 indicates this is probably a component of volume depletion. This patient has had an echocardiogram apparently yesterday, although no reports available. Preliminary report shows ejection fraction 60% to 65%. No significant valvular dysfunction. No significant pulmonary hypertension being documented. I will follow the patient along with you. We will repeat the EKG today, but we would continue off antihypertensive medications and fluid treatment. Myron De Dios M.D. DR: GIORGI JOB#: [id number] CC:
[2017-11-03] MEDS ORDERED: Dyna-Hex 2% Top Sol 2oz TOPIC SCH (20:00)
[2017-11-03] MEDS: Phenytoin 100mg cap ORAL SCH (20:31)
[2017-11-04] VITALS (15 sets, daily range): BP systolic 86–135; BP diastolic 40–61
[2017-11-04] MEDS: MEROPENEM IVPB SCH (05:33)
[2017-11-04] MEDS: NS IVPB SCH (05:33)
[2017-11-04 05:46] LABS: BASOPHILS % (AUTO) 0.7 % (0.0-2.0); EOSINOPHILS % (AUTO) 2.2 % (0.0-3.0); HEMATOCRIT 26.9 % (42.0-52.0); HEMOGLOBIN 9.2 G/DL (14.2-18.0); LYMPHOCYTES % (AUTO) 18.4 % (20.0-45.0); MEAN CORPUSCULAR VOLUME 93 FL (80-99); MONOCYTES % (AUTO) 9.8 % (1.0-10.0); PLATELET COUNT 122 K/UL (150-450); RED CELL DISTRIBUTION WIDTH 12.4 % (11.6-14.8); WHITE BLOOD COUNT 10.8 K/UL (4.8-10.8)
[2017-11-04] MEDS ORDERED: AMIKACIN IV SCH (06:00)
[2017-11-04] MEDS ORDERED: NS IV SCH (06:00)
[2017-11-04 06:03] LABS: INR 1.1 (0.9-1.1)
[2017-11-04 06:14] LABS: ALANINE AMINOTRANSFERASE 44 U/L (12-78); ALBUMIN 1.9 G/DL (3.4-5.0); ALBUMIN/GLOBULIN RATIO 0.5 (1.0-2.7); ALKALINE PHOSPHATASE 51 U/L (46-116); ANION GAP 8 mmol/L (5-15); ASPARTATE AMINO TRANSFERASE 53 U/L (15-37); BILIRUBIN,TOTAL 0.3 MG/DL (0.2-1.0); BLOOD UREA NITROGEN 20 mg/dL (7-18); CALCIUM 7.7 MG/DL (8.5-10.1); CARBON DIOXIDE 22 MMOL/L (21-32); CHLORIDE 111 MMOL/L (98-107); LACTATE DEHYDROGENASE 114 U/L (81-234); PHOSPHORUS 1.7 MG/DL (2.5-4.9); POTASSIUM 3.7 MMOL/L (3.5-5.1); SODIUM 141 MMOL/L (136-145)
[2017-11-04 07:18] LABS: % IRON SATURATION 10 % (15-50); IRON 14 ug/dL (50-175); TOTAL IRON BINDING CAPACITY 138 ug/dL (250-450)
[2017-11-04] MEDS: Heparin 5000 units/ml inj SUBQ SCH ×2 (09:00→20:56)
[2017-11-04] MEDS: Pantoprazole Inj IVP SCH (09:14)
--- NOTE | 2017-11-04 10:03 | Pulmonolgy Critical Care Note ---
Critical Care - Asmt/Plan Problems: (1) Septic shock (2) Hypotension (3) ATN (acute tubular necrosis) (4) History of CVA (cerebrovascular accident) (5) History of hypertension (6) Diabetes mellitus Respiratory: monitor respiratory rate, CXR, ABG Cardiac: continue to monitor HR/BP Renal: F/U I&O, keep IV fluid Infectious Disease: check cultures Gastrointestinal: continue feedings/current rate Endocrine: monitor blood sugar Hematologic: monitor H/H, transfuse if hgb<8.5, other - start venofer IV Neurologic: PRN Ativan, PRN Morphine, keep patient comfortable Prophylaxis: Protonix, Heparin Disposition: transfer to Notes Reviewed: cardio, ID Discussed with: nurses, consultants, case finishing machine adjuster, family member - talked to Izzy duvall Critical Care - Objective Last 24 Hour Vital Signs Date Time Temp Pulse Resp B/P (MAP) Pulse Ox O2 Delivery O2 Flow Rate FiO2 11/04/17 07:48 Nasal Cannula 2.0 28 11/04/17 07:48 100 Nasal Cannula 2.0 28 11/04/17 07:46 70 20 Nasal Cannula 2.0 28 11/04/17 07:00 87 20 122/52 100 Nasal Cannula 2.0 11/04/17 06:00 73 23 99/43 100 Nasal Cannula 2.0 11/04/17 05:00 76 26 105/49 100 Nasal Cannula 2.0 11/04/17 04:00 98.9 77 28 112/45 100 Nasal Cannula 2.0 98.9 11/04/17 03:02 90 11/04/17 03:00 78 24 96/46 99 Nasal Cannula 2.0 11/04/17 02:00 77 20 106/46 98 Nasal Cannula 2.0 11/04/17 01:00 74 20 94/42 100 Nasal Cannula 2.0 11/04/17 00:00 98.4 71 19 106/45 100 Nasal Cannula 2.0 98.4 11/03/17 23:32 72 11/03/17 23:00 71 21 92/43 100 Nasal Cannula 2.0 11/03/17 22:00 72 20 104/47 100 Nasal Cannula 2.0 11/03/17 21:00 78 21 109/42 100 Nasal Cannula 2.0 11/03/17 20:17 74 11/03/17 20:00 98.5 77 18 108/44 100 Nasal Cannula 2.0 98.5 11/03/17 19:00 78 20 116/45 100 Nasal Cannula 2.0 11/03/17 18:00 78 20 116/50 100 Nasal Cannula 2.0 11/03/17 17:00 97.6 73 19 119/46 100 Nasal Cannula 2.0 97.6 11/03/17 16:00 63 13 111/47 100 Nasal Cannula 2.0 11/03/17 15:50 64 11/03/17 15:00 63 19 101/45 100 Nasal Cannula 2.0 11/03/17 14:00 67 17 104/44 100 Nasal Cannula 2.0 11/03/17 13:00 61 13 95/50 100 Nasal Cannula 2.0 11/03/17 12:03 67 11/03/17 12:00 97.8 63 14 81/34 100 Nasal Cannula 2.0 97.8 11/03/17 11:00 57 19 94/48 100 Nasal Cannula 2.0 11/03/17 10:24 100 Nasal Cannula 2.0 28 11/03/17 10:23 Nasal Cannula 2.0 28 11/03/17 10:21 61 20 Nasal Cannula 2.0 28 11/03/17 10:00 60 22 93/43 100 Nasal Cannula 2.0 Status: awake Neck: full ROM Lungs: clear Heart: HR/BP stable Abdomen: soft, non-tender Extremities: no C/C/E Decubiti: location Micro: Microbiology Date/Time Source Procedure Growth Status 11/02/17 12:10 Blood Blood Culture - Preliminary NO GROWTH AFTER 24 HOURS Resulted 11/02/17 11:55 Blood Blood Culture - Preliminary NO GROWTH AFTER 24 HOURS Resulted 11/02/17 14:45 Nasal Nares MRSA Culture - Final NO METHICILLIN RESISTANT STAPH AUREUS... Complete 11/02/17 12:45 Nasal Nares Influenza Types A,B Antigen (ROHITH) - Final Complete 11/03/17 03:30 Urine,Clean Catch Urine Culture - Preliminary NO GROWTH Resulted 11/02/17 12:30 Urine,Clean Catch Urine Culture - Final Escherichia Coli Complete 11/03/17 03:30 Sacral Wound Gram Stain - Final Resulted 11/03/17 03:30 Sacral Wound Wound Culture Pending Resulted Critical Care - Subjective ROS Limited/Unobtainable: Yes ICU Day: 2 Condition: critical, improving EKG Rhythm: Sinus Rhythm FI02: 28 Fluids: NS 100 cc/hour Drips: levophed I&O: Intake and Output 11/03/17 11/04/17 19:00 07:00 Intake Total 1825.000 ml 1800 ml Output Total 655 ml 470 ml Balance 1170.000 ml 1330 ml IV Total 1825.000 ml 1750 ml Other 50 ml Output Urine Total 655 ml 470 ml CXR: pending Labs: Laboratory Tests Test 11/04/17 04:05 White Blood Count 10.8 K/UL (4.8-10.8) Red Blood Count 2.90 M/UL (4.70-6.10) L Hemoglobin 9.2 G/DL (14.2-18.0) L Hematocrit 26.9 % (42.0-52.0) L Mean Corpuscular Volume 93 FL (80-99) Mean Corpuscular Hemoglobin 31.8 PG (27.0-31.0) H Mean Corpuscular Hemoglobin Concent 34.2 G/DL (32.0-36.0) Red Cell Distribution Width 12.4 % (11.6-14.8) Platelet Count 122 K/UL (150-450) L Mean Platelet Volume 6.2 FL (6.5-10.1) L Neutrophils (%) (Auto) 69.0 % (45.0-75.0) Lymphocytes (%) (Auto) 18.4 % (20.0-45.0) L Monocytes (%) (Auto) 9.8 % (1.0-10.0) Eosinophils (%) (Auto) 2.2 % (0.0-3.0) Basophils (%) (Auto) 0.7 % (0.0-2.0) Differential Total Cells Counted 100 Neutrophils % (Manual) 70 % (45-75) Lymphocytes % (Manual) 20 % (20-45) Monocytes % (Manual) 7 % (1-10) Eosinophils % (Manual) 2 % (0-3) Basophils % (Manual) 1 % (0-2) Band Neutrophils 0 % (0-8) Platelet Estimate Decreased L Platelet Morphology Normal Red Blood Cell Morphology Normal Erythrocyte Sedimentation Rate 73 MM/HR (0-20) H Reticulocyte Count Pending Prothrombin Time 11.6 SEC (9.30-11.50) H Prothromb Time International Ratio 1.1 (0.9-1.1) Activated Partial Thromboplast Time 38 SEC (23-33) H Sodium Level 141 MMOL/L (136-145) Potassium Level 3.7 MMOL/L (3.5-5.1) Chloride Level 111 MMOL/L (98-107) H Carbon Dioxide Level 22 MMOL/L (21-32) Anion Gap 8 mmol/L (5-15) Blood Urea Nitrogen 20 mg/dL (7-18) H Creatinine 1.0 MG/DL (0.55-1.30) Estimat Glomerular Filtration Rate mL/min (>60) Glucose Level 96 MG/DL (74-106) Calcium Level 7.7 MG/DL (8.5-10.1) L Phosphorus Level 1.7 MG/DL (2.5-4.9) L Magnesium Level 1.8 MG/DL (1.8-2.4) Iron Level 14 ug/dL (50-175) L Total Iron Binding Capacity 138 ug/dL (250-450) L Percent Iron Saturation 10 % (15-50) L Unsaturated Iron Binding 124 ug/dL (112-346) Total Bilirubin 0.3 MG/DL (0.2-1.0) Aspartate Amino Transf (AST/SGOT) 53 U/L (15-37) H Alanine Aminotransferase (ALT/SGPT) 44 U/L (12-78) Alkaline Phosphatase 51 U/L (46-116) Lactate Dehydrogenase 114 U/L (81-234) Total Protein 6.0 G/DL (6.4-8.2) L Albumin 1.9 G/DL (3.4-5.0) L Globulin 4.1 g/dL Albumin/Globulin Ratio 0.5 (1.0-2.7) L Vitamin B12 Level 778 PG/ML (193-986) Folate 18.5 NG/ML (8.6-58.9) Kimberlyn Torres MD Nov 04, 2017 10:03
--- NOTE | 2017-11-04 11:20 | Infectious Diseases Prog Note ---
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 Will continue to follow along with you. Discussed with RN. Subjective Allergies: Coded Allergies: NO KNOWN DRUG ALLERGIES (Verified Allergy, Unknown, 08/08/16) Subjective afebrile ~48hrs Bcx NTD off pressors since yesterday at 2L NC Objective Vital Signs Last 24 Hour Vital Signs Date Time Temp Pulse Resp B/P (MAP) Pulse Ox O2 Delivery O2 Flow Rate FiO2 11/04/17 09:00 64 23 100/44 100 Nasal Cannula 2.0 11/04/17 08:00 98.0 71 22 94/40 100 Nasal Cannula 2.0 98.0 11/04/17 07:48 Nasal Cannula 2.0 28 11/04/17 07:48 100 Nasal Cannula 2.0 28 11/04/17 07:46 70 20 Nasal Cannula 2.0 28 11/04/17 07:00 87 20 122/52 100 Nasal Cannula 2.0 11/04/17 06:00 73 23 99/43 100 Nasal Cannula 2.0 11/04/17 05:00 76 26 105/49 100 Nasal Cannula 2.0 11/04/17 04:00 98.9 77 28 112/45 100 Nasal Cannula 2.0 98.9 11/04/17 03:02 90 11/04/17 03:00 78 24 96/46 99 Nasal Cannula 2.0 11/04/17 02:00 77 20 106/46 98 Nasal Cannula 2.0 11/04/17 01:00 74 20 94/42 100 Nasal Cannula 2.0 11/04/17 00:00 98.4 71 19 106/45 100 Nasal Cannula 2.0 98.4 11/03/17 23:32 72 11/03/17 23:00 71 21 92/43 100 Nasal Cannula 2.0 11/03/17 22:00 72 20 104/47 100 Nasal Cannula 2.0 11/03/17 21:00 78 21 109/42 100 Nasal Cannula 2.0 11/03/17 20:17 74 11/03/17 20:00 98.5 77 18 108/44 100 Nasal Cannula 2.0 98.5 11/03/17 19:00 78 20 116/45 100 Nasal Cannula 2.0 11/03/17 18:00 78 20 116/50 100 Nasal Cannula 2.0 11/03/17 17:00 97.6 73 19 119/46 100 Nasal Cannula 2.0 97.6 11/03/17 16:00 63 13 111/47 100 Nasal Cannula 2.0 11/03/17 15:50 64 11/03/17 15:00 63 19 101/45 100 Nasal Cannula 2.0 11/03/17 14:00 67 17 104/44 100 Nasal Cannula 2.0 11/03/17 13:00 61 13 95/50 100 Nasal Cannula 2.0 11/03/17 12:03 67 11/03/17 12:00 97.8 63 14 81/34 100 Nasal Cannula 2.0 97.8 Height (Feet): 5 Height (Inches): 7.00 Weight (Pounds): 140 Objective General Appearance: cachetic Lines, tubes and drains: peripheral HEENT: normocephalic, atraumatic Neck: non-tender, normal alignment Respiratory/Chest: rhonchi - left, rhonchi - right Breasts: no masses Cardiovascular/Chest: normal peripheral pulses Abdomen: normal bowel sounds, non tender Extremities: normal range of motion, non-tender Microbiology Date/Time Source Procedure Growth Status 11/02/17 12:10 Blood Blood Culture - Preliminary NO GROWTH AFTER 24 HOURS Resulted 11/02/17 11:55 Blood Blood Culture - Preliminary NO GROWTH AFTER 24 HOURS Resulted 11/02/17 14:45 Nasal Nares MRSA Culture - Final NO METHICILLIN RESISTANT STAPH AUREUS... Complete 11/02/17 12:45 Nasal Nares Influenza Types A,B Antigen (ROHITH) - Final Complete 11/03/17 03:30 Urine,Clean Catch Urine Culture - Preliminary NO GROWTH Resulted 11/02/17 12:30 Urine,Clean Catch Urine Culture - Final Escherichia Coli Complete 11/03/17 03:30 Sacral Wound Gram Stain - Final Resulted 11/03/17 03:30 Sacral Wound Wound Culture Pending Resulted 11/02/17 14:45 Rectum VRE Culture - Final Enterococcus Faecalis - Vre Complete Laboratory Tests Test 11/04/17 04:05 White Blood Count 10.8 K/UL (4.8-10.8) Red Blood Count 2.90 M/UL (4.70-6.10) L Hemoglobin 9.2 G/DL (14.2-18.0) L Hematocrit 26.9 % (42.0-52.0) L Mean Corpuscular Volume 93 FL (80-99) Mean Corpuscular Hemoglobin 31.8 PG (27.0-31.0) H Mean Corpuscular Hemoglobin Concent 34.2 G/DL (32.0-36.0) Red Cell Distribution Width 12.4 % (11.6-14.8) Platelet Count 122 K/UL (150-450) L Mean Platelet Volume 6.2 FL (6.5-10.1) L Neutrophils (%) (Auto) 69.0 % (45.0-75.0) Lymphocytes (%) (Auto) 18.4 % (20.0-45.0) L Monocytes (%) (Auto) 9.8 % (1.0-10.0) Eosinophils (%) (Auto) 2.2 % (0.0-3.0) Basophils (%) (Auto) 0.7 % (0.0-2.0) Differential Total Cells Counted 100 Neutrophils % (Manual) 70 % (45-75) Lymphocytes % (Manual) 20 % (20-45) Monocytes % (Manual) 7 % (1-10) Eosinophils % (Manual) 2 % (0-3) Basophils % (Manual) 1 % (0-2) Band Neutrophils 0 % (0-8) Platelet Estimate Decreased L Platelet Morphology Normal Red Blood Cell Morphology Normal Erythrocyte Sedimentation Rate 73 MM/HR (0-20) H Reticulocyte Count 0.7 % (0.0-2.0) Prothrombin Time 11.6 SEC (9.30-11.50) H Prothromb Time International Ratio 1.1 (0.9-1.1) Activated Partial Thromboplast Time 38 SEC (23-33) H Sodium Level 141 MMOL/L (136-145) Potassium Level 3.7 MMOL/L (3.5-5.1) Chloride Level 111 MMOL/L (98-107) H Carbon Dioxide Level 22 MMOL/L (21-32) Anion Gap 8 mmol/L (5-15) Blood Urea Nitrogen 20 mg/dL (7-18) H Creatinine 1.0 MG/DL (0.55-1.30) Estimat Glomerular Filtration Rate mL/min (>60) Glucose Level 96 MG/DL (74-106) Calcium Level 7.7 MG/DL (8.5-10.1) L Phosphorus Level 1.7 MG/DL (2.5-4.9) L Magnesium Level 1.8 MG/DL (1.8-2.4) Iron Level 14 ug/dL (50-175) L Total Iron Binding Capacity 138 ug/dL (250-450) L Percent Iron Saturation 10 % (15-50) L Unsaturated Iron Binding 124 ug/dL (112-346) Total Bilirubin 0.3 MG/DL (0.2-1.0) Aspartate Amino Transf (AST/SGOT) 53 U/L (15-37) H Alanine Aminotransferase (ALT/SGPT) 44 U/L (12-78) Alkaline Phosphatase 51 U/L (46-116) Lactate Dehydrogenase 114 U/L (81-234) Total Protein 6.0 G/DL (6.4-8.2) L Albumin 1.9 G/DL (3.4-5.0) L Globulin 4.1 g/dL Albumin/Globulin Ratio 0.5 (1.0-2.7) L Vitamin B12 Level 778 PG/ML (193-986) Folate 18.5 NG/ML (8.6-58.9) Current Medications Medications (Trade) Dose Ordered Sig/Arley Route PRN Reason Start Time Stop Time Status Last Admin Dose Admin Acetaminophen (Tylenol) 650 mg Q4H PRN ORAL fever 11/02/17 13:30 12/02/17 13:29 Albuterol/ Ipratropium (Albuterol/ Ipratropium) 3 ml EVERY 4 HOURS PRN HHN Shortness of Breath 11/02/17 13:30 11/07/17 13:29 Chlorhexidine Gluconate (Desire-Hex 2%) 1 applic DAILY@2000 TOPIC 11/03/17 20:00 12/03/17 19:59 11/03/17 19:35 Heparin Sodium (Porcine) (Heparin 5000 units/ml) 5,000 units EVERY 12 HOURS SUBQ 11/02/17 21:00 12/02/17 20:59 11/03/17 09:48 Iron Sucrose 100 mg/Sodium Chloride 60 ml @ 240 mls/hr BEDTIME IV 11/04/17 21:00 11/08/17 21:14 Lorazepam (Ativan 2mg/ml 1ml) 1 mg Q2H PRN IV For Seizures 11/03/17 10:15 11/10/17 10:14 Meropenem 2 gm/ Sodium Chloride 275 ml @ 275 mls/hr Q8HR IVPB 11/03/17 14:00 11/08/17 13:59 11/04/17 05:33 Morphine Sulfate (Morphine Sulfate) 2 mg EVERY 4 HOURS PRN IVP Severe Pain (Pain Scale 7-10) 11/02/17 13:30 11/09/17 13:29 Norepinephrine Bitartrate 4 mg/ Dextrose 254 ml @ 0 mls/hr Q24H IV 11/02/17 14:39 12/02/17 14:38 11/03/17 00:15 Ondansetron HCl (Zofran) 4 mg Q6H PRN IVP Nausea & Vomiting 11/02/17 13:30 12/02/17 13:29 Pantoprazole (Protonix) 40 mg DAILY IVP 11/03/17 09:00 12/03/17 08:59 11/04/17 09:14 Phenytoin (Dilantin) 400 mg BEDTIME ORAL 11/02/17 21:00 12/02/17 20:59 11/03/17 20:31 Polyethylene Glycol (Miralax) 17 gm DAILYPRN PRN ORAL Constipation 11/02/17 13:30 12/02/17 13:29 Sodium Chloride 1,000 ml @ 75 mls/hr [id number] IVLG 11/04/17 14:39 12/02/17 14:38 Sodium Phosphate 30 mm/Sodium Chloride 285 ml @ 47.5 mls/hr ONCE ONCE IV 11/04/17 12:45 11/04/17 18:44 Vancomycin HCl (Vanco rx to dose) 1 ea DAILY PRN MISC RX TO DOSE 11/02/17 15:15 12/02/17 15:14 Vancomycin HCl/ Dextrose 250 ml @ 166.667 mls/hr Q24H IVPB 11/03/17 13:00 11/08/17 12:59 11/03/17 13:40 Anayeli Castro M.D. Nov 04, 2017 11:19
--- NOTE | 2017-11-04 11:54 | Diagnostic Imaging Report ---
Indication: Reason For Exam: [id number] Technique: Portable AP view of the chest Comparison: 10/30/2013 Findings: Prominent linear opacities at the right base likely related to subsegmental atelectasis. Developing infiltrate not entirely excluded. No pleural effusion. No pneumothorax. Size and mediastinal contours are stable. Osseous structures stable. IMPRESSION: Interval development of streaky opacities at the right base thought to represent subsegmental atelectasis. Developing infiltrate not entirely excluded. Clinical correlation and follow-up exam recommended.
[2017-11-04] MEDS ORDERED: LORazepam Inj 2mg/ml 1ml IV PRN (12:15)
[2017-11-04] MEDS ORDERED: Sodium Phosphate 30 MM in NS 275 ML IV ONE ×4 (12:45)
[2017-11-04] MEDS ORDERED: Morphine Sulfate 4mg/ml Inj IVP PRN (13:00)
[2017-11-04] MEDS ORDERED: Albuterol/Ipratropium 3ml neb HHN PRN (13:00)
[2017-11-04] MEDS: cefTRIAXone 1 GM in D5W 55 ML IVPB SCH (13:09)
[2017-11-04] MEDS ORDERED: Miralax 17gm pkt ORAL PRN (13:30)
[2017-11-04] MEDS ORDERED: cefTRIAXone 1 GM in D5W 55 ML IVPB SCH (13:30)
[2017-11-04] MEDS ORDERED: Tubing IV Secondary IV ONE (16:37)
[2017-11-04] MEDS ORDERED: Sterile Water Irrig 1000ml IRRIG ONE (16:37)
[2017-11-04] MEDS ORDERED: Dyna-Hex 2% Top Sol 2oz TOPIC SCH (20:00)
--- NOTE | 2017-11-04 20:13 | Cardiology Progress Note ---
Assessment/Plan Assessment/Plan 1. Hypotension secondary to sepsis and volume depletion. 2. Sepsis secondary to urinary tract infection. 3. Volume depletion. 4. Acute renal insufficiency, improved with hydration. 5. Diabetes mellitus. 6. Hypertension history, now hypotensive. 7. History of two prior cerebrovascular accidents with aphasia. 8. Decubitus ulcers, status post debridement. 9. Renal insufficiency. 10. Hypoalbuminemia, likely related to protein-calorie malnutriti keep hydrating iv abx reepat ekg nutrition ;supplement blood cx negg urien + for ecoli bp is better real fucntion stabl e he seem better verall Subjective ROS Limited/Unobtainable: Yes Objective Last 24 Hour Vital Signs Date Time Temp Pulse Resp B/P (MAP) Pulse Ox O2 Delivery O2 Flow Rate FiO2 11/04/17 16:00 68 11/04/17 16:00 97.8 63 20 128/60 95 Nasal Cannula 2.0 97.8 11/04/17 12:00 97.8 68 21 108/53 95 Room Air 97.8 11/04/17 12:00 81 11/04/17 11:00 65 15 86/40 100 Nasal Cannula 2.0 11/04/17 10:00 67 13 101/44 100 Nasal Cannula 2.0 11/04/17 09:00 64 23 100/44 100 Nasal Cannula 2.0 11/04/17 08:00 68 11/04/17 08:00 98.0 71 22 94/40 100 Nasal Cannula 2.0 98.0 11/04/17 07:48 Nasal Cannula 2.0 28 11/04/17 07:48 100 Nasal Cannula 2.0 28 11/04/17 07:46 70 20 Nasal Cannula 2.0 28 11/04/17 07:00 87 20 122/52 100 Nasal Cannula 2.0 11/04/17 06:00 73 23 99/43 100 Nasal Cannula 2.0 11/04/17 05:00 76 26 105/49 100 Nasal Cannula 2.0 11/04/17 04:00 98.9 77 28 112/45 100 Nasal Cannula 2.0 98.9 11/04/17 03:02 90 11/04/17 03:00 78 24 96/46 99 Nasal Cannula 2.0 11/04/17 02:00 77 20 106/46 98 Nasal Cannula 2.0 11/04/17 01:00 74 20 94/42 100 Nasal Cannula 2.0 11/04/17 00:00 98.4 71 19 106/45 100 Nasal Cannula 2.0 98.4 11/03/17 23:32 72 11/03/17 23:00 71 21 92/43 100 Nasal Cannula 2.0 11/03/17 22:00 72 20 104/47 100 Nasal Cannula 2.0 11/03/17 21:00 78 21 109/42 100 Nasal Cannula 2.0 11/03/17 20:17 74 General Appearance: no apparent distress, alert Neck: supple Cardiovascular: normal rate, regular rhythm Respiratory/Chest: lungs clear, normal breath sounds Abdomen: normal bowel sounds, non tender, soft Extremities: no swelling Intake and Output 11/03/17 11/04/17 19:00 07:00 Intake Total 1825.000 ml 1800 ml Output Total 655 ml 470 ml Balance 1170.000 ml 1330 ml IV Total 1825.000 ml 1750 ml Other 50 ml Output Urine Total 655 ml 470 ml Laboratory Tests Test 11/04/17 04:05 White Blood Count 10.8 K/UL (4.8-10.8) Red Blood Count 2.90 M/UL (4.70-6.10) L Hemoglobin 9.2 G/DL (14.2-18.0) L Hematocrit 26.9 % (42.0-52.0) L Mean Corpuscular Volume 93 FL (80-99) Mean Corpuscular Hemoglobin 31.8 PG (27.0-31.0) H Mean Corpuscular Hemoglobin Concent 34.2 G/DL (32.0-36.0) Red Cell Distribution Width 12.4 % (11.6-14.8) Platelet Count 122 K/UL (150-450) L Mean Platelet Volume 6.2 FL (6.5-10.1) L Neutrophils (%) (Auto) 69.0 % (45.0-75.0) Lymphocytes (%) (Auto) 18.4 % (20.0-45.0) L Monocytes (%) (Auto) 9.8 % (1.0-10.0) Eosinophils (%) (Auto) 2.2 % (0.0-3.0) Basophils (%) (Auto) 0.7 % (0.0-2.0) Differential Total Cells Counted 100 Neutrophils % (Manual) 70 % (45-75) Lymphocytes % (Manual) 20 % (20-45) Monocytes % (Manual) 7 % (1-10) Eosinophils % (Manual) 2 % (0-3) Basophils % (Manual) 1 % (0-2) Band Neutrophils 0 % (0-8) Platelet Estimate Decreased L Platelet Morphology Normal Red Blood Cell Morphology Normal Erythrocyte Sedimentation Rate 73 MM/HR (0-20) H Reticulocyte Count 0.7 % (0.0-2.0) Prothrombin Time 11.6 SEC (9.30-11.50) H Prothromb Time International Ratio 1.1 (0.9-1.1) Activated Partial Thromboplast Time 38 SEC (23-33) H Sodium Level 141 MMOL/L (136-145) Potassium Level 3.7 MMOL/L (3.5-5.1) Chloride Level 111 MMOL/L (98-107) H Carbon Dioxide Level 22 MMOL/L (21-32) Anion Gap 8 mmol/L (5-15) Blood Urea Nitrogen 20 mg/dL (7-18) H Creatinine 1.0 MG/DL (0.55-1.30) Estimat Glomerular Filtration Rate mL/min (>60) Glucose Level 96 MG/DL (74-106) Calcium Level 7.7 MG/DL (8.5-10.1) L Phosphorus Level 1.7 MG/DL (2.5-4.9) L Magnesium Level 1.8 MG/DL (1.8-2.4) Iron Level 14 ug/dL (50-175) L Total Iron Binding Capacity 138 ug/dL (250-450) L Percent Iron Saturation 10 % (15-50) L Unsaturated Iron Binding 124 ug/dL (112-346) Total Bilirubin 0.3 MG/DL (0.2-1.0) Aspartate Amino Transf (AST/SGOT) 53 U/L (15-37) H Alanine Aminotransferase (ALT/SGPT) 44 U/L (12-78) Alkaline Phosphatase 51 U/L (46-116) Lactate Dehydrogenase 114 U/L (81-234) Total Protein 6.0 G/DL (6.4-8.2) L Albumin 1.9 G/DL (3.4-5.0) L Globulin 4.1 g/dL Albumin/Globulin Ratio 0.5 (1.0-2.7) L Vitamin B12 Level 778 PG/ML (193-986) Folate 18.5 NG/ML (8.6-58.9) Microbiology Date/Time Source Procedure Growth Status 11/02/17 12:10 Blood Blood Culture - Preliminary NO GROWTH AFTER 24 HOURS Resulted 11/02/17 11:55 Blood Blood Culture - Preliminary NO GROWTH AFTER 24 HOURS Resulted 11/02/17 14:45 Nasal Nares MRSA Culture - Final NO METHICILLIN RESISTANT STAPH AUREUS... Complete 11/02/17 12:45 Nasal Nares Influenza Types A,B Antigen (ROHITH) - Final Complete 11/03/17 03:30 Urine,Clean Catch Urine Culture - Preliminary NO GROWTH Resulted 11/02/17 12:30 Urine,Clean Catch Urine Culture - Final Escherichia Coli Complete 11/03/17 03:30 Sacral Wound Gram Stain - Final Resulted 11/03/17 03:30 Sacral Wound Wound Culture Pending Resulted 11/02/17 14:45 Rectum VRE Culture - Final Enterococcus Faecalis - Vre Complete VAL SLADE Nov 04, 2017 20:13
[2017-11-04] MEDS ORDERED: Phenytoin 100mg cap ORAL SCH (21:00)
[2017-11-04] MEDS ORDERED: Iron Sucrose 100 MG in NS 55 ML IV SCH ×4 (21:00)
[2017-11-05] VITALS: BP 142/68
[2017-11-05 04:00] VITALS: BP 162/73
[2017-11-05 04:51] LABS: BASOPHILS % (AUTO) 0.6 % (0.0-2.0); EOSINOPHILS % (AUTO) 5.3 % (0.0-3.0); HEMATOCRIT 27.3 % (42.0-52.0); HEMOGLOBIN 9.6 G/DL (14.2-18.0); LYMPHOCYTES % (AUTO) 28.2 % (20.0-45.0); MEAN CORPUSCULAR VOLUME 92 FL (80-99); MONOCYTES % (AUTO) 9.7 % (1.0-10.0); NEUTROPHILS % (AUTO) 56.3 % (45.0-75.0); PLATELET COUNT 127 K/UL (150-450); RED BLOOD COUNT 2.98 M/UL (4.70-6.10); RED CELL DISTRIBUTION WIDTH 12.1 % (11.6-14.8)
[2017-11-05 05:25] LABS: ALANINE AMINOTRANSFERASE 49 U/L (12-78); ALBUMIN 1.9 G/DL (3.4-5.0); ALBUMIN/GLOBULIN RATIO 0.5 (1.0-2.7); ALKALINE PHOSPHATASE 59 U/L (46-116); ANION GAP 10 mmol/L (5-15); ASPARTATE AMINO TRANSFERASE 46 U/L (15-37); BILIRUBIN,TOTAL 0.2 MG/DL (0.2-1.0); BLOOD UREA NITROGEN 14 mg/dL (7-18); CARBON DIOXIDE 22 MMOL/L (21-32); CHLORIDE 112 MMOL/L (98-107); CREATININE 0.7 MG/DL (0.55-1.30); PHOSPHORUS 2.6 MG/DL (2.5-4.9); POTASSIUM 3.5 MMOL/L (3.5-5.1); SODIUM 144 MMOL/L (136-145)
[2017-11-05 08:00] VITALS: BP 137/70
[2017-11-05] MEDS: Heparin 5000 units/ml inj SUBQ SCH (08:48)
[2017-11-05] MEDS ORDERED: Pantoprazole Inj IVP SCH (09:00)
--- NOTE | 2017-11-05 10:44 | Pulmonology Progress Note ---
Assessment/Plan Problems: (1) Septic shock (2) Hypotension (3) Diabetes mellitus (4) History of hypertension (5) History of CVA (cerebrovascular accident) (6) ATN (acute tubular necrosis) Assessment/Plan vital signs more stable off pressors Urine cultures avialable, Ecoli sensitive to Ceftriaxone check electrolytes iv [facility] wound care pt/ot swallow study noted, pts daughter refused video swallow study Subjective ROS Limited/Unobtainable: No Interval Events: was more awake earlier, as nurse reports Constitutional: Reports: no symptoms HEENT: Repors: no symptoms Allergies: Coded Allergies: METRONIDAZOLE (Verified Allergy, Intermediate, 11/04/17) Lethargary and Vomit NO KNOWN DRUG ALLERGIES (Verified Allergy, Unknown, 08/08/16) Objective Last 24 Hour Vital Signs Date Time Temp Pulse Resp B/P (MAP) Pulse Ox O2 Delivery O2 Flow Rate FiO2 11/05/17 08:00 63 11/05/17 08:00 97.3 66 18 137/70 99 Room Air 97.3 11/05/17 07:45 Nasal Cannula 2.0 28 11/05/17 07:45 71 20 Nasal Cannula 2.0 28 11/05/17 07:45 95 Nasal Cannula 2.0 28 11/05/17 04:00 69 11/05/17 04:00 97.7 74 21 162/73 96 Nasal Cannula 2.0 97.7 11/05/17 00:00 98.1 76 18 142/68 94 Nasal Cannula 2.0 98.1 11/05/17 00:00 77 11/04/17 20:00 97.9 93 22 135/61 96 Nasal Cannula 2.0 97.9 11/04/17 20:00 76 11/04/17 19:30 96 Nasal Cannula 2.0 28 11/04/17 19:30 68 18 Nasal Cannula 2.0 28 11/04/17 19:30 Nasal Cannula 2.0 28 11/04/17 16:00 68 11/04/17 16:00 97.8 63 20 128/60 95 Nasal Cannula 2.0 97.8 11/04/17 12:00 97.8 68 21 108/53 95 Room Air 97.8 11/04/17 12:00 81 11/04/17 11:00 65 15 86/40 100 Nasal Cannula 2.0 Intake and Output 11/04/17 11/05/17 19:00 07:00 Intake Total 787.5 ml 917.5 ml Output Total 405 ml 1300 ml Balance 382.5 ml -382.5 ml Intake Oral 120 ml IV Total 667.5 ml 917.5 ml Output Urine Total 405 ml 1300 ml General Appearance: cachetic HEENT: normocephalic, atraumatic Respiratory/Chest: chest wall non-tender, crackles/rales Cardiovascular: normal peripheral pulses, normal rate Abdomen: normal bowel sounds, soft, non tender Extremities: no cyanosis Skin: no rash 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 Complete 11/02/17 12:45 Nasal Nares Influenza Types A,B Antigen (ROHITH) - Final Complete 11/03/17 03:30 Urine,Clean Catch Urine Culture - Preliminary NO GROWTH AFTER 24 HOURS Resulted 11/02/17 12:30 Urine,Clean Catch Urine Culture - Final Escherichia Coli Complete 11/03/17 03:30 Sacral Wound Gram Stain - Final Resulted 11/03/17 03:30 Wound Culture - Preliminary Staphylococcus Sp Coag Neg Resulted 11/02/17 14:45 Rectum VRE Culture - Final Enterococcus Faecalis - Vre Complete Laboratory Tests 11/05/17 03:50: White Blood Count 7.0, Red Blood Count 2.98L, Hemoglobin 9.6L, Hematocrit 27.3L , Mean Corpuscular Volume 92, Mean Corpuscular Hemoglobin 32.3H, Mean Corpuscular Hemoglobin Concent 35.2, Red Cell Distribution Width 12.1, Platelet Count 127L, Mean Platelet Volume 5.7L, Neutrophils (%) (Auto) 56.3, Lymphocytes (%) (Auto) 28.2, Monocytes (%) (Auto) 9.7, Eosinophils (%) (Auto) 5.3H, Basophils (%) (Auto) 0.6, Sodium Level 144, Potassium Level 3.5, Chloride Level 112H, Carbon Dioxide Level 22, Anion Gap 10, Blood Urea Nitrogen 14, Creatinine 0.7, Estimat Glomerular Filtration Rate , Glucose Level 108H, Calcium Level 8.0L , Phosphorus Level 2.6, Magnesium Level 1.8, Total Bilirubin 0.2, Aspartate Amino Transf (AST/SGOT) 46H, Alanine Aminotransferase (ALT/SGPT) 49, Alkaline Phosphatase 59, Total Protein 6.0L, Albumin 1.9L, Globulin 4.1, Albumin/ Globulin Ratio 0.5L Current Medications Medications (Trade) Dose Ordered Sig/Arley Route PRN Reason Start Time Stop Time Status Last Admin Dose Admin Acetaminophen (Tylenol) 650 mg Q4H PRN ORAL fever 11/04/17 13:30 12/02/17 13:29 Albuterol/ Ipratropium (Albuterol/ Ipratropium) 3 ml EVERY 4 HOURS PRN HHN Shortness of Breath 11/04/17 13:00 11/07/17 13:29 Ceftriaxone Sodium 1 gm/ Dextrose 55 ml @ 110 mls/hr Q24H IVPB 11/04/17 13:30 11/11/17 13:29 11/04/17 13:09 Chlorhexidine Gluconate (Desire-Hex 2%) 1 applic DAILY@2000 TOPIC 11/04/17 20:00 12/03/17 19:59 11/04/17 20:37 Heparin Sodium (Porcine) (Heparin 5000 units/ml) 5,000 units EVERY 12 HOURS SUBQ 11/04/17 21:00 12/02/17 20:59 Iron Sucrose 100 mg/Sodium Chloride 60 ml @ 240 mls/hr BEDTIME IV 11/04/17 21:00 11/08/17 21:14 11/04/17 21:09 Lorazepam (Ativan 2mg/ml 1ml) 1 mg Q2H PRN IV For Seizures 11/04/17 12:15 11/10/17 10:14 Morphine Sulfate (Morphine Sulfate) 2 mg EVERY 4 HOURS PRN IVP Severe Pain (Pain Scale 7-10) 11/04/17 13:00 11/09/17 13:29 Ondansetron HCl (Zofran) 4 mg Q6H PRN IVP Nausea & Vomiting 11/04/17 13:30 12/02/17 13:29 Pantoprazole (Protonix) 40 mg DAILY IVP 11/05/17 09:00 12/03/17 08:59 11/05/17 08:47 Phenytoin (Dilantin) 400 mg BEDTIME ORAL 11/04/17 21:00 12/02/17 20:59 11/04/17 20:40 Polyethylene Glycol (Miralax) 17 gm DAILYPRN PRN ORAL Constipation 11/04/17 13:30 12/02/17 13:29 Sodium Chloride 1,000 ml @ 75 mls/hr [id number] IVLG 11/04/17 14:39 12/02/17 14:38 11/05/17 04:22 Kimberlyn Torres MD Nov 05, 2017 10:43
[2017-11-05 12:00] VITALS: BP 125/60
--- NOTE | 2017-11-05 12:22 | Infectious Diseases Prog Note ---
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 Will continue to follow along with you. Discussed with RN. Subjective Allergies: Coded Allergies: METRONIDAZOLE (Verified Allergy, Intermediate, 11/04/17) Lethargary and Vomit NO KNOWN DRUG ALLERGIES (Verified Allergy, Unknown, 08/08/16) Subjective transferred out of ICU yesterday afebrile in 72hrs no leukocytosis Bcx NTD Objective Vital Signs Last 24 Hour Vital Signs Date Time Temp Pulse Resp B/P (MAP) Pulse Ox O2 Delivery O2 Flow Rate FiO2 11/05/17 08:00 63 11/05/17 08:00 97.3 66 18 137/70 99 Room Air 97.3 11/05/17 07:45 Nasal Cannula 2.0 28 11/05/17 07:45 71 20 Nasal Cannula 2.0 28 11/05/17 07:45 95 Nasal Cannula 2.0 28 11/05/17 04:00 69 11/05/17 04:00 97.7 74 21 162/73 96 Nasal Cannula 2.0 97.7 11/05/17 00:00 98.1 76 18 142/68 94 Nasal Cannula 2.0 98.1 11/05/17 00:00 77 11/04/17 20:00 97.9 93 22 135/61 96 Nasal Cannula 2.0 97.9 11/04/17 20:00 76 11/04/17 19:30 96 Nasal Cannula 2.0 28 11/04/17 19:30 68 18 Nasal Cannula 2.0 28 11/04/17 19:30 Nasal Cannula 2.0 28 11/04/17 16:00 68 11/04/17 16:00 97.8 63 20 128/60 95 Nasal Cannula 2.0 97.8 Height (Feet): 5 Height (Inches): 7.00 Weight (Pounds): 140 Objective General Appearance: cachetic Lines, tubes and drains: peripheral HEENT: normocephalic, atraumatic Neck: non-tender, normal alignment Respiratory/Chest: rhonchi - left, rhonchi - right Breasts: no masses Cardiovascular/Chest: normal peripheral pulses Abdomen: normal bowel sounds, non tender Extremities: normal range of motion, non-tender Microbiology Date/Time Source Procedure Growth Status 11/02/17 14:45 Nasal Nares MRSA Culture - Final NO METHICILLIN RESISTANT STAPH AUREUS... Complete 11/02/17 12:45 Nasal Nares Influenza Types A,B Antigen (ROHITH) - Final Complete 11/03/17 03:30 Urine,Clean Catch Urine Culture - Preliminary NO GROWTH AFTER 24 HOURS Resulted 11/02/17 12:30 Urine,Clean Catch Urine Culture - Final Escherichia Coli Complete 11/03/17 03:30 Sacral Wound Gram Stain - Final Resulted 11/03/17 03:30 Wound Culture - Preliminary Staphylococcus Sp Coag Neg Resulted 11/02/17 14:45 Rectum VRE Culture - Final Enterococcus Faecalis - Vre Complete Laboratory Tests Test 11/05/17 03:50 White Blood Count 7.0 K/UL (4.8-10.8) Red Blood Count 2.98 M/UL (4.70-6.10) L Hemoglobin 9.6 G/DL (14.2-18.0) L Hematocrit 27.3 % (42.0-52.0) L Mean Corpuscular Volume 92 FL (80-99) Mean Corpuscular Hemoglobin 32.3 PG (27.0-31.0) H Mean Corpuscular Hemoglobin Concent 35.2 G/DL (32.0-36.0) Red Cell Distribution Width 12.1 % (11.6-14.8) Platelet Count 127 K/UL (150-450) L Mean Platelet Volume 5.7 FL (6.5-10.1) L Neutrophils (%) (Auto) 56.3 % (45.0-75.0) Lymphocytes (%) (Auto) 28.2 % (20.0-45.0) Monocytes (%) (Auto) 9.7 % (1.0-10.0) Eosinophils (%) (Auto) 5.3 % (0.0-3.0) H Basophils (%) (Auto) 0.6 % (0.0-2.0) Sodium Level 144 MMOL/L (136-145) Potassium Level 3.5 MMOL/L (3.5-5.1) Chloride Level 112 MMOL/L (98-107) H Carbon Dioxide Level 22 MMOL/L (21-32) Anion Gap 10 mmol/L (5-15) Blood Urea Nitrogen 14 mg/dL (7-18) Creatinine 0.7 MG/DL (0.55-1.30) Estimat Glomerular Filtration Rate mL/min (>60) Glucose Level 108 MG/DL (74-106) H Calcium Level 8.0 MG/DL (8.5-10.1) L Phosphorus Level 2.6 MG/DL (2.5-4.9) Magnesium Level 1.8 MG/DL (1.8-2.4) Total Bilirubin 0.2 MG/DL (0.2-1.0) Aspartate Amino Transf (AST/SGOT) 46 U/L (15-37) H Alanine Aminotransferase (ALT/SGPT) 49 U/L (12-78) Alkaline Phosphatase 59 U/L (46-116) Total Protein 6.0 G/DL (6.4-8.2) L Albumin 1.9 G/DL (3.4-5.0) L Globulin 4.1 g/dL Albumin/Globulin Ratio 0.5 (1.0-2.7) L Current Medications Medications (Trade) Dose Ordered Sig/Arley Route PRN Reason Start Time Stop Time Status Last Admin Dose Admin Acetaminophen (Tylenol) 650 mg Q4H PRN ORAL fever 11/04/17 13:30 12/02/17 13:29 Albuterol/ Ipratropium (Albuterol/ Ipratropium) 3 ml EVERY 4 HOURS PRN HHN Shortness of Breath 11/04/17 13:00 11/07/17 13:29 Ceftriaxone Sodium 1 gm/ Dextrose 55 ml @ 110 mls/hr Q24H IVPB 11/04/17 13:30 11/11/17 13:29 11/04/17 13:09 Chlorhexidine Gluconate (Desire-Hex 2%) 1 applic DAILY@2000 TOPIC 11/04/17 20:00 12/03/17 19:59 11/04/17 20:37 Heparin Sodium (Porcine) (Heparin 5000 units/ml) 5,000 units EVERY 12 HOURS SUBQ 11/04/17 21:00 12/02/17 20:59 Iron Sucrose 100 mg/Sodium Chloride 60 ml @ 240 mls/hr BEDTIME IV 11/04/17 21:00 11/08/17 21:14 11/04/17 21:09 Lorazepam (Ativan 2mg/ml 1ml) 1 mg Q2H PRN IV For Seizures 11/04/17 12:15 11/10/17 10:14 Morphine Sulfate (Morphine Sulfate) 2 mg EVERY 4 HOURS PRN IVP Severe Pain (Pain Scale 7-10) 11/04/17 13:00 11/09/17 13:29 Ondansetron HCl (Zofran) 4 mg Q6H PRN IVP Nausea & Vomiting 11/04/17 13:30 12/02/17 13:29 Pantoprazole (Protonix) 40 mg DAILY IVP 11/05/17 09:00 12/03/17 08:59 11/05/17 08:47 Phenytoin (Dilantin) 400 mg BEDTIME ORAL 11/04/17 21:00 12/02/17 20:59 11/04/17 20:40 Polyethylene Glycol (Miralax) 17 gm DAILYPRN PRN ORAL Constipation 11/04/17 13:30 12/02/17 13:29 Sodium Chloride 1,000 ml @ 75 mls/hr [id number] IVLG 11/04/17 14:39 12/02/17 14:38 11/05/17 04:22 Anayeli Castro M.D. Nov 05, 2017 12:22
[2017-11-05] MEDS: cefTRIAXone 1 GM in D5W 55 ML IVPB SCH (12:41)
[2017-11-05 16:00] VITALS: BP 127/57
[2017-11-05] MEDS ORDERED: Albuterol/Ipratropium 3ml neb HHN PRN (17:00)
[2017-11-05] MEDS ORDERED: LORazepam Inj 2mg/ml 1ml IV PRN (17:00)
[2017-11-05] MEDS ORDERED: Morphine Sulfate 4mg/ml Inj IVP PRN (17:00)
[2017-11-05] MEDS ORDERED: Miralax 17gm pkt ORAL PRN (17:00)
--- NOTE | 2017-11-05 19:13 | Cardiology Progress Note ---
Assessment/Plan Assessment/Plan 1. Hypotension secondary to sepsis and volume depletion. 2. Sepsis secondary to urinary tract infection. 3. Volume depletion. 4. Acute renal insufficiency, improved with hydration. 5. Diabetes mellitus. 6. Hypertension history, now hypotensive. 7. History of two prior cerebrovascular accidents with aphasia. 8. Decubitus ulcers, status post debridement. 9. Renal insufficiency. 10. Hypoalbuminemia, likely related to protein-calorie malnutriti nutrition ;supplement blood cx neg still urien + for ecoli bp is better renal function normal Subjective ROS Limited/Unobtainable: Yes Objective Last 24 Hour Vital Signs Date Time Temp Pulse Resp B/P (MAP) Pulse Ox O2 Delivery O2 Flow Rate FiO2 11/05/17 16:00 72 11/05/17 16:00 97.3 66 20 127/57 95 Room Air 97.3 11/05/17 12:00 97.0 67 22 125/60 95 Room Air 97.0 11/05/17 12:00 69 11/05/17 08:00 63 11/05/17 08:00 97.3 66 18 137/70 99 Room Air 97.3 11/05/17 07:45 Nasal Cannula 2.0 28 11/05/17 07:45 71 20 Nasal Cannula 2.0 28 11/05/17 07:45 95 Nasal Cannula 2.0 28 11/05/17 04:00 69 11/05/17 04:00 97.7 74 21 162/73 96 Nasal Cannula 2.0 97.7 11/05/17 00:00 98.1 76 18 142/68 94 Nasal Cannula 2.0 98.1 11/05/17 00:00 77 11/04/17 20:00 97.9 93 22 135/61 96 Nasal Cannula 2.0 97.9 11/04/17 20:00 76 11/04/17 19:30 96 Nasal Cannula 2.0 28 11/04/17 19:30 68 18 Nasal Cannula 2.0 28 11/04/17 19:30 Nasal Cannula 2.0 28 General Appearance: no apparent distress, alert Neck: supple Cardiovascular: normal rate, regular rhythm Respiratory/Chest: lungs clear Abdomen: normal bowel sounds, non tender, soft Extremities: no swelling Intake and Output 11/04/17 11/05/17 19:00 07:00 Intake Total 787.5 ml 917.5 ml Output Total 405 ml 1300 ml Balance 382.5 ml -382.5 ml Intake Oral 120 ml IV Total 667.5 ml 917.5 ml Output Urine Total 405 ml 1300 ml Laboratory Tests Test 11/05/17 03:50 White Blood Count 7.0 K/UL (4.8-10.8) Red Blood Count 2.98 M/UL (4.70-6.10) L Hemoglobin 9.6 G/DL (14.2-18.0) L Hematocrit 27.3 % (42.0-52.0) L Mean Corpuscular Volume 92 FL (80-99) Mean Corpuscular Hemoglobin 32.3 PG (27.0-31.0) H Mean Corpuscular Hemoglobin Concent 35.2 G/DL (32.0-36.0) Red Cell Distribution Width 12.1 % (11.6-14.8) Platelet Count 127 K/UL (150-450) L Mean Platelet Volume 5.7 FL (6.5-10.1) L Neutrophils (%) (Auto) 56.3 % (45.0-75.0) Lymphocytes (%) (Auto) 28.2 % (20.0-45.0) Monocytes (%) (Auto) 9.7 % (1.0-10.0) Eosinophils (%) (Auto) 5.3 % (0.0-3.0) H Basophils (%) (Auto) 0.6 % (0.0-2.0) Sodium Level 144 MMOL/L (136-145) Potassium Level 3.5 MMOL/L (3.5-5.1) Chloride Level 112 MMOL/L (98-107) H Carbon Dioxide Level 22 MMOL/L (21-32) Anion Gap 10 mmol/L (5-15) Blood Urea Nitrogen 14 mg/dL (7-18) Creatinine 0.7 MG/DL (0.55-1.30) Estimat Glomerular Filtration Rate mL/min (>60) Glucose Level 108 MG/DL (74-106) H Calcium Level 8.0 MG/DL (8.5-10.1) L Phosphorus Level 2.6 MG/DL (2.5-4.9) Magnesium Level 1.8 MG/DL (1.8-2.4) Total Bilirubin 0.2 MG/DL (0.2-1.0) Aspartate Amino Transf (AST/SGOT) 46 U/L (15-37) H Alanine Aminotransferase (ALT/SGPT) 49 U/L (12-78) Alkaline Phosphatase 59 U/L (46-116) Total Protein 6.0 G/DL (6.4-8.2) L Albumin 1.9 G/DL (3.4-5.0) L Globulin 4.1 g/dL Albumin/Globulin Ratio 0.5 (1.0-2.7) L Microbiology Date/Time Source Procedure Growth Status 11/03/17 03:30 Urine,Clean Catch Urine Culture - Preliminary NO GROWTH AFTER 24 HOURS Resulted 11/03/17 03:30 Sacral Wound Gram Stain - Final Resulted 11/03/17 03:30 Wound Culture - Preliminary Staphylococcus Sp Coag Neg Resulted VAL SLADE Nov 05, 2017 19:13
[2017-11-05 20:00] VITALS: BP 150/62
[2017-11-05] MEDS ORDERED: Dyna-Hex 2% Top Sol 2oz TOPIC SCH (20:00)
[2017-11-05] MEDS ORDERED: Phenytoin 100mg cap ORAL SCH (21:00)
[2017-11-05] MEDS ORDERED: Iron Sucrose 100 MG in NS 55 ML IV SCH (21:00)
[2017-11-05] MEDS ORDERED: Heparin 5000 units/ml inj SUBQ SCH (21:00)
--- NOTE | 2017-11-05 23:29 | Wound Care Consultation ---
Wound Assessment Wound Assessment : Wound Number: 1 Wound Present on Admission: Yes New Wound: No Status Change of Wound: No Wound Location Body Site: sacral Wound Type: pressure ulcer Simba Test: Does not Simba Pressure Ulcer Stage: III Wound Thickness: Full Thickness Wound Length: 2.5 Wound Width: 2.0 Wound Depth: 0.2 Percent of Wound [place]/Red: 100 Wound Drainage Description: Serosanguineous Wound Drainage Amount: Scant Wound Drainage Odor: None/Absent Tissue Surrounding Wound: Erythemic - with full thickness scar tissue Wound General Appearance: Reddened, Draining Wound Comment Sacral stage III pressure ulcer. Surrounding tissue with full thickness scar tissue. Recommendation -Local wound care per protocol -Keep clean and dry -Offload both heels -Heel protector on both heels -Optimize nutrition -Low air loss mattress -Assess and f/u with MD for any changes ANJANA PIKE RN Nov 05, 2017 23:29
[2017-11-06] VITALS: BP 124/57
[2017-11-06 04:00] VITALS: BP_SYST 103; BP_SYST 105; BP_DIAS 55; BP_DIAS 67
[2017-11-06 08:00] VITALS: BP 118/52
[2017-11-06] MEDS ORDERED: Pantoprazole Inj IVP SCH (09:00)
[2017-11-06] MEDS ORDERED: Heparin 5000 units/ml inj SUBQ SCH ×2 (09:00)
[2017-11-06 09:04] LABS: BASOPHILS % (AUTO) 0.7 % (0.0-2.0); EOSINOPHILS % (AUTO) 7.2 % (0.0-3.0); HEMATOCRIT 26.6 % (42.0-52.0); HEMOGLOBIN 9.3 G/DL (14.2-18.0); LYMPHOCYTES % (AUTO) 31.7 % (20.0-45.0); MEAN CORPUSCULAR VOLUME 92 FL (80-99); MONOCYTES % (AUTO) 7.9 % (1.0-10.0); NEUTROPHILS % (AUTO) 52.5 % (45.0-75.0); PLATELET COUNT 136 K/UL (150-450); RED CELL DISTRIBUTION WIDTH 12.2 % (11.6-14.8); WHITE BLOOD COUNT 7.7 K/UL (4.8-10.8)
[2017-11-06 09:28] LABS: ALANINE AMINOTRANSFERASE 64 U/L (12-78); ALBUMIN 1.9 G/DL (3.4-5.0); ALBUMIN/GLOBULIN RATIO 0.5 (1.0-2.7); ALKALINE PHOSPHATASE 70 U/L (46-116); ANION GAP 7 mmol/L (5-15); ASPARTATE AMINO TRANSFERASE 68 U/L (15-37); BILIRUBIN,TOTAL 0.3 MG/DL (0.2-1.0); BLOOD UREA NITROGEN 13 mg/dL (7-18); CALCIUM 7.7 MG/DL (8.5-10.1); CARBON DIOXIDE 25 MMOL/L (21-32); CHLORIDE 111 MMOL/L (98-107); CREATININE 0.7 MG/DL (0.55-1.30); PHOSPHORUS 1.9 MG/DL (2.5-4.9); POTASSIUM 3.3 MMOL/L (3.5-5.1); SODIUM 143 MMOL/L (136-145)
[2017-11-06] MEDS ORDERED: Tubing IV Secondary IV ONE ×2 (10:58→16:34)
[2017-11-06] MEDS ORDERED: NS Irrig 1000ml ONE (10:58)
[2017-11-06] MEDS ORDERED: NS 275ml ONE (10:58)
[2017-11-06 12:00] VITALS: BP 103/50
[2017-11-06] MEDS: cefTRIAXone 1 GM in D5W 55 ML IVPB SCH ×2 (12:20→12:33)
[2017-11-06] MEDS ORDERED: CEPHALEXIN500 MG ORAL (12:53)
--- NOTE | 2017-11-06 12:56 | Pulmonology Progress Note ---
Assessment/Plan Problems: (1) Septic shock (2) Hypotension (3) Diabetes mellitus (4) History of hypertension (5) History of CVA (cerebrovascular accident) (6) ATN (acute tubular necrosis) Assessment/Plan vital signs more stable doing better Urine cultures avialable, Ecoli sensitive to Ceftriaxone check electrolytes iv [facility] wound care pt/ot swallow study noted, pts daughter refused video swallow study pt might go home to finish the abx course at home Subjective ROS Limited/Unobtainable: No Constitutional: Reports: no symptoms HEENT: Repors: no symptoms Respiratory: Reports: no symptoms Allergies: Coded Allergies: METRONIDAZOLE (Verified Allergy, Intermediate, 11/04/17) Lethargary and Vomit NO KNOWN DRUG ALLERGIES (Verified Allergy, Unknown, 08/08/16) Objective Last 24 Hour Vital Signs Date Time Temp Pulse Resp B/P (MAP) Pulse Ox O2 Delivery O2 Flow Rate FiO2 11/06/17 08:20 72 18 Nasal Cannula 2.0 28 11/06/17 08:20 95 Nasal Cannula 2.0 28 11/06/17 08:20 Nasal Cannula 2.0 28 11/06/17 08:00 97.0 64 20 118/52 92 Room Air 97.0 11/06/17 04:00 98.7 73 20 103/55 92 Room Air 98.7 11/06/17 00:00 97.4 69 20 124/57 100 Room Air 97.4 11/05/17 20:00 97.5 71 20 150/62 92 Room Air 97.5 11/05/17 20:00 Nasal Cannula 2.0 28 11/05/17 20:00 94 Nasal Cannula 2.0 28 11/05/17 20:00 70 20 Nasal Cannula 2.0 28 11/05/17 16:00 72 11/05/17 16:00 97.3 66 20 127/57 95 Room Air 97.3 Intake and Output 11/05/17 11/06/17 19:00 07:00 Intake Total 750 ml 675 ml Output Total 300 ml 350 ml Balance 450 ml 325 ml Intake Oral 20 ml IV Total 730 ml 675 ml Output Urine Total 300 ml 350 ml General Appearance: cachetic HEENT: normocephalic, atraumatic Respiratory/Chest: chest wall non-tender, lungs clear Cardiovascular: normal peripheral pulses, normal rate Abdomen: normal bowel sounds, soft, non tender, no organomegaly Genitourinary: normal external genitalia Extremities: no cyanosis Skin: no rash 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/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 grossly normal Lymphatic: no neck adenopathy Laboratory Tests 11/06/17 08:15: White Blood Count 7.7, Red Blood Count 2.90L, Hemoglobin 9.3L, Hematocrit 26.6L , Mean Corpuscular Volume 92, Mean Corpuscular Hemoglobin 32.0H, Mean Corpuscular Hemoglobin Concent 34.9, Red Cell Distribution Width 12.2, Platelet Count 136L, Mean Platelet Volume 5.8L, Neutrophils (%) (Auto) 52.5, Lymphocytes (%) (Auto) 31.7, Monocytes (%) (Auto) 7.9, Eosinophils (%) (Auto) 7.2H, Basophils (%) (Auto) 0.7, Sodium Level 143, Potassium Level 3.3L, Chloride Level 111H, Carbon Dioxide Level 25, Anion Gap 7, Blood Urea Nitrogen 13, Creatinine 0.7, Estimat Glomerular Filtration Rate , Glucose Level 108H, Calcium Level 7.7L, Phosphorus Level 1.9L, Magnesium Level 1.5L, Total Bilirubin 0.3, Aspartate Amino Transf (AST/SGOT) 68H, Alanine Aminotransferase ( ALT/SGPT) 64, Alkaline Phosphatase 70, Total Protein 6.0L, Albumin 1.9L, Globulin 4.1, Albumin/Globulin Ratio 0.5L Current Medications Medications (Trade) Dose Ordered Sig/Arley Route PRN Reason Start Time Stop Time Status Last Admin Dose Admin Acetaminophen (Tylenol) 650 mg Q4H PRN ORAL T>100.5 11/05/17 17:00 12/02/17 16:59 Albuterol/ Ipratropium (Albuterol/ Ipratropium) 3 ml Q4H PRN HHN Shortness of Breath 11/05/17 17:00 11/10/17 16:59 Ceftriaxone Sodium 1 gm/ Dextrose 55 ml @ 110 mls/hr Q24H IVPB 11/06/17 13:30 11/11/17 13:29 11/06/17 12:33 Chlorhexidine Gluconate (Desire-Hex 2%) 1 applic DAILY@1999 TOPIC 11/05/17 20:00 12/03/17 19:59 11/05/17 20:49 Heparin Sodium (Porcine) (Heparin 5000 units/ml) 5,000 units EVERY 12 HOURS SUBQ 11/06/17 09:00 12/02/17 20:59 11/06/17 09:28 Iron Sucrose 100 mg/Sodium Chloride 60 ml @ 240 mls/hr BEDTIME IV 11/05/17 21:00 11/08/17 21:14 11/05/17 20:49 Lorazepam (Ativan 2mg/ml 1ml) 1 mg Q2H PRN IV For Seizures 11/05/17 17:00 11/10/17 16:59 Morphine Sulfate (Morphine Sulfate) 2 mg Q4H PRN IVP Severe Pain (Pain Scale 7-10) 11/05/17 17:00 11/12/17 16:59 Ondansetron HCl (Zofran) 4 mg Q6H PRN IVP Nausea & Vomiting 11/05/17 17:00 12/02/17 16:59 Pantoprazole (Protonix) 40 mg DAILY IVP 11/06/17 09:00 12/03/17 08:59 11/06/17 09:27 Phenytoin (Dilantin) 400 mg BEDTIME ORAL 11/05/17 21:00 12/02/17 20:59 11/05/17 20:50 Polyethylene Glycol (Miralax) 17 gm DAILYPRN PRN ORAL Constipation 11/05/17 17:00 12/05/17 16:59 Sodium Chloride 1,000 ml @ 75 mls/hr [id number] IVLG 11/05/17 17:00 12/02/17 16:59 11/06/17 05:35 Kimberlyn Torres MD Nov 06, 2017 12:56
--- NOTE | 2017-11-07 03:30 | Consultation ---
DATE OF CONSULTATION: 11/06/2017 NOTE: POOR AUDIO HEMATOLOGY/ONCOLOGY CONSULTATION CONSULTING PHYSICIAN: Ronen Reid M.D. REQUESTING PHYSICIAN: Kimberlyn Torres M.D. REASON FOR CONSULTATION: Evaluation of anemia and thrombocytopenia. IDENTIFYING DATA: Dear Dr. Torres, The patient is a pleasant 72-year-old male with past medical history, which is significant for CVA in 2008, aphasia, no history of cancer, no history of hepatitis, at this time presents to the hospital from assisted with decubitus wound, noted to be , has been given IV fluids, admitted to the ICU noted. He has been seen by Cardiology Service. noted to be thrombocytopenia as well as anemia. Hematology Service was consulted for further evaluation and treatment. The patient has been having decreased p.o intake occasionally. His daughter and he has been potentially responding well per daughter. PAST MEDICAL HISTORY: Diabetes mellitus, hypertension, CVA with recurrence in the past, and decubitus ulceration. MEDICATIONS: , heparin subcutaneously, and IV iron. ALLERGIES: Flagyl. SOCIAL HISTORY: He used to smoke, quit 20 years ago. No illicit drug use. REVIEW OF SYSTEMS: CONSTITUTIONAL: No fever, chills, or night sweats. SKIN: No rashes, bumps, or itching. HEENT: No headache, hearing or vision changes. BREASTS: No lumps, pain, or discharge. PULMONARY: No cough, sputum, or shortness of breath. GASTROINTESTINAL: No nausea, vomiting, or diarrhea. GENITOURINARY: No dysuria, frequency, or urgency. MUSCULOSKELETAL: No joint swelling, muscle pain, or trauma. PHYSICAL EXAMINATION: VITAL SIGNS: GENERAL: No acute distress. PULMONARY: Decreased breath sounds. CARDIOVASCULAR: Regular rate. No S3 or S4. ABDOMEN: Soft, nontender, and nondistended. noted. EXTREMITIES: No cyanosis. No edema. LABORATORY AND DIAGNOSTIC DATA: WBC 16.6, hemoglobin 9.3, hematocrit 27, and platelet count 136,000. Differential has been reviewed, normocytic. BUN of 13 and creatinine 0.7. Iron of 14, TIBC 138, percent saturation 10. Total bilirubin of 0.3. INR 1.1 and PTT of 38. IMPRESSION AND PLAN: 1. Anemia due to underlying iron deficiency. The patient is on IV iron, has been started on Ferrlecit. Closely monitor for improvement. Hemoglobin goal is above 7. 2. Leukocytosis, likely secondary to underlying infection, septic shock, status post antibiotics. 3. Hypertension. Systolic blood pressure goal less than 140. Continue to closely monitor. 4. Sepsis due to underlying urinary tract infection. He is on antibiotics. 5. Prior cerebrovascular accident with aphasia. Closely monitor for improvement. 6. Urine positive for Escherichia coli. 7. Volume depletion, status post fluid administration. I appreciate the consultation. Ronen Reid M.D. DR: SETH JOB#: [id number] CC:
--- NOTE | 2017-11-08 07:43 | Discharge Summary ---
Discharge Summary Discharge Summary Discharge Summary DATE OF ADMISSION: 11/02/2017 DATE OF DISCHARGE: 11/06/2017 REASON FOR ADMISSION: 72 years old male with past medical history significant for hypertension, CVA 2 with aphasia, presented to emergency department from the wound care center due to hypotension. Patient presented with fever, altered mental status, tachypnea and hypotension. Laboratory workup revealed leukocytosis, WBC 16.6, hemoglobin 11.7 hematocrit 33, BUN 44 creatinine 1.6, sodium 131. Urinalysis with evidence of UTI. Chest x-ray revealed no evidence of acute cardiopulmonary pathology. Influenza screen test was negative. Skull x-ray revealed no evidence of fractures but showed prior craniotomy. Patient was severely hypotensive and central line was placed in anticipation for pressors. Septic workup was initiated: patient was given fluid challenge, pancultured and started on empiric antibiotics. Patient was admitted with diagnosis of septic shock, sepsis, hypotension, acute tubular necrosis, urinary tract infection, sacral decubitus stage III present on admission, history of CVA 2 with aphasia, encephalopathy, anemia. Patient was admitted to ICU for further management CONSULTANTS: oracle programmer Dr. De Dios ID specialist Dr. Bridges theater set production designer/oncologist Dr. Reid urologist Dr. Romo [facility] COURSE: Patient was initially admitted to ICU. Patient started on the IV fluids and pressors. Blood pressure improved with pressor overnight. Compensation Vice President seen and evaluated the patient. According to oracle programmer hypotension was likely secondary to sepsis and volume depletion. Echocardiogram revealed preserved ejection fraction of 60-65% and right ventricular systolic pressure of 9, no evidence of left ventricular hypertrophy. Pressors were discontinued as per oracle programmer recommendation since blood pressure improved. Renal parameters and electrolytes were closely monitored. Electrolytes were corrected as needed. Nephrotoxics were avoided. Creatinine down to normal with IV hydration. Electrolytes stable. Acute tubular necrosis was likely due to volume depletion secondary to dehydration and resolved with IV fluids. ID specialist closely followed patient. Blood culture were negative, urine culture revealed Escherichia coli. Patient was on IV antibiotic while in the hospital and was discharged on oral antibiotics to complete the course as per infectious disease specialist recommendation. Urologist seen and evaluated the patient and recommended observe urine output and quality, continue antibiotic and removed catheter once UTI treated. Patient was not catheter dependent at home. Wound care provided as per wound care nurse recommendation. Patient status post recent debridement of sacral decubitus stage II.I present on admission. Wound clean. Patient follow-up as outpatient with wound clinic. Venous duplex bilateral lower extremities was negative. DVT and GI prophylaxis provided. Patient was working with physical and occupational therapists. Strict aspiration precautions were maintained. Diet was provided as per speech therapist recommendations. Speech therapist recommended further video swallow evaluation, which was refused by patient's daughter. Nutritional supplements provided as marine pipe welder recommendation Anemia workup was consistent with iron deficiency anemia. Colorist Photography closely followed. Patient was given intravenous iron. Hemoglobin and hematocrit remained at the baseline. Goal to keep hemoglobin above 7. Patient clinically improved. Leukocytosis resolved, blood pressure stable. Renal parameters stable. Mental status at baseline. Patient was stable for discharge home with home health services. FINAL DIAGNOSES: Septic shock Sepsis due to UTI UTI with Escherichia coli Hypotension ( secondary to sepsis and volume depletion) Acute tubular necrosis, resolved Volume depletion, secondary to dehydration -resolved History of CVA 2 with aphasia Anemia of iron deficiency Encephalopathy Diabetes mellitus History of hypertension Protein calorie malnutrition Sacral decubitus stage III present on admission DISCHARGE MEDICATIONS: See Medication Reconciliation list. DISCHARGE INSTRUCTIONS: Patient was discharged home with home health services. Follow up with primary care provider. Complete antibiotic course as recommended by ID specialist. I have been assigned to dictate discharge summary for this account. I was not involved in the patient's management. Alise Fierro NP ([place]) Nov 08, 2017 07:43
--- NOTE | 2017-11-09 10:48 | Cardiology Report ---
APPROVED REPORT EXAM: Two-dimensional and M-mode echocardiogram with Doppler and color Doppler. INDICATION Left Ventricular Function M-Mode DIMENSIONS IVSd1.0 (0.7-1.1cm)Left Atrium (MM)4.0 (1.6-4.0cm) LVDd4.0 (3.5-5.6cm)Aortic Root3.0 (2.0-3.7cm) PWd0.9 (0.7-1.1cm)Aortic Cusp Exc.1.5 (1.5-2.0cm) LVDs1.5 (2.5-4.0cm) PWs1.5 cm Technically difficult study due to poor acoustic windows. Study quality precludes accurate assessment of regional wall motion. Normal left ventricular chamber size, systolic function and wall motion. Left ventricular ejection fraction estimated to be 60-65 %. No evidenve of left ventricular hypertrophy. Anterior Echo-free space, may be due to pericardial fat or effusion. Left atrial size at upper limits of normal. Right cardiac chamber sizes are within normal limits. Focal aortic valve sclerosis with adequate cusp excursion. Thickened mitral valve leaflets with normal excursion. Mild mitral annulus and aortic root calcification. Pulmonic valve not well visualized. Normal tricuspid valve structure. Subcostal views not obtainable. A color flow and spectral Doppler study was performed and revealed: No aortic insufficiency No mitral regurgitation. Mitral inflow velocities indicates possible pseudo normalization pattern implying significant left ventricular diastolic dysfunction (Grade II). No tricuspid regurgitation. Tricuspid systolic velocities suggests peak right ventricular systolic pressure of 9 mmHg. No pulmonic regurgitation present.
== END 2017-11-06 16:35 | disposition home health service (06) | DRG 871 ==
LOC: EMR 13:08 → ICU 13:12 → EDBEDREQ 13:21 → 2W 11-04 12:08 → 4E 11-05 16:18
DX: A41.9 Sepsis, unspecified organism (principal); L89.153 Pressure ulcer of sacral region, stage 3; G93.40 Encephalopathy, unspecified; N17.0 Acute kidney failure with tubular necrosis; R65.21 Severe sepsis with septic shock; N39.0 Urinary tract infection, site not specified; E46 Unspecified protein-calorie malnutrition; I10 Essential (primary) hypertension; E11.9 Type 2 diabetes mellitus without complications; Z86.73 Personal history of transient ischemic attack (TIA), and cerebral infarction without residual deficits; I69.320 Aphasia following cerebral infarction; D50.9 Iron deficiency anemia, unspecified; E86.0 Dehydration; Z87.891 Personal history of nicotine dependence; D69.6 Thrombocytopenia, unspecified; Z88.1 Allergy status to other antibiotic agents; B96.20 Unspecified Escherichia coli [E. coli] as the cause of diseases classified elsewhere
CPT/HCPCS: 31500; 36415; 36600; 70250; 71045; 80053; 80185; 81001; 81003; 82248; 82378; 82550; 82553; 82607; 82746; 82803; 82962; 83540; 83550; 83605; 83615; 83735; 84100; 84133; 84300; 84484; 84550; 85007; 85025; 85044; 85060; 85610; 85651; 85730; 86710; 87040; 87070; 87081; 87086; 87181; 87205; 89050; 93005; 93306; 93970; 94664; 94760; 99291

== ENCOUNTER 2017-11-16 11:04 | Outpatient (RCR) | payer MEDICARE, OTHER ==
[~2017-11-16 11:04] MED LIST changes: +BENAZEPRIL HCL20 MG ORAL; +CEPHALEXIN500 MG ORAL; +DILANTIN100 MG ORAL; +GLYBURIDE2.5 MG PO; -Heparin 2000 units/Ns 1000ml INJ ONE; -Lidocaine 1% Plain 30 ml INJ ONE; +NORMODYNE100 MG ORAL; +NORVASC5 MG ORAL; -Sodium Bicarbonate 8.4% 50ml Inj IV ONE; +TRICOR145 MG ORAL; +TYLENOL EXTRA500 MG ORAL
== END 2017-12-10 | disposition home or self-care (01) ==
LOC: WCC 11:04
DX: L89.154 Pressure ulcer of sacral region, stage 4 (principal); L89.320 Pressure ulcer of left buttock, unstageable; M86.38 Chronic multifocal osteomyelitis, other site; A41.9 Sepsis, unspecified organism; Z86.73 Personal history of transient ischemic attack (TIA), and cerebral infarction without residual deficits; E11.9 Type 2 diabetes mellitus without complications; I10 Essential (primary) hypertension
CPT/HCPCS: 11042; 15271; Q4133

== ENCOUNTER 2017-12-14 10:18 | Outpatient (RCR) | payer MEDICARE, OTHER | END 2018-01-09 | disposition home or self-care (01) | LOC: WCC 10:18 | DX: A41.9 Sepsis, unspecified organism (principal); L89.154 Pressure ulcer of sacral region, stage 4; L89.320 Pressure ulcer of left buttock, unstageable; M86.38 Chronic multifocal osteomyelitis, other site; I10 Essential (primary) hypertension; E11.9 Type 2 diabetes mellitus without complications; Z86.73 Personal history of transient ischemic attack (TIA), and cerebral infarction without residual deficits | CPT/HCPCS: G0463 ==